=== PATIENT | female | born 1995 | race Caucasian/White ===

== ENCOUNTER → 2016-04-28 | Outpatient (CLI) | payer OTHER ==
--- NOTE | 2016-04-28 14:50 | US ---
EXAMINATION TYPE: US venous doppler duplex LE DATE OF EXAM: 04/28/2016 2:00 PM COMPARISON: NONE CLINICAL HISTORY: Non healing wounds bilateral feet, left big toe amputated, diabetic LOWER EXTREMITY VENOUS INSUFFICIENCY SIDE PERFORMED: Bilateral 1) Color flow is present and patency is documented in the following vessels. No DVT or SVT is noted . ? EIV ? Common Femoral Vein ? Deep Femoral Vein ? Femoral Vein ? Popliteal Vein ? Proximal Calf Veins ? Greater Saph Vein ? Upper Small Saph Vein 2) There is venous reflux noted at the following venous levels: Left proximal femoral vein only Right veins were wnl .
--- NOTE | 2016-05-06 14:39 | P.ARTDOP ---
Arterial Doppler LOWER EXTREMITY ARTERIAL DOPPLER: DATE OF SERVICE: 04/28/2016 Reason for study: Left great toe ulcer. Doppler waveforms: Multiphasic bilaterally throughout. Pulse volume recording: Normal configuration. Pressure gradients: None. Ankle-brachial indices: Greater than 1 bilaterally. Toe pressures: 144 on the right, 112 on the left Impression: Normal study.
== END | disposition home or self-care (01) ==
LOC: RADUSWWP 13:20
PROVIDERS: ATTEND Podiatrist
DX: I87.2 Venous insufficiency (chronic) (peripheral) (principal); E13.621 Other specified diabetes mellitus with foot ulcer
CPT/HCPCS: 93923; 93970

== ENCOUNTER → 2016-05-15 | Outpatient (CLI) | payer OTHER ==
--- NOTE | 2016-05-15 12:04 | XR ---
EXAMINATION TYPE: XR foot limited bilateral DATE OF EXAM: 05/15/2016 11:31 AM COMPARISON: 03/16/2016 HISTORY: Swelling and ulcers Findings: Left foot: There is previous surgery involving the first and fifth digit. Deformity of the head of th e second metatarsal suggests Freiberg's infarction. Diffuse soft tissue edema is noted. There is reduced mineralization involving the head of the first m etatarsal. Right foot: Hypertrophic change and narrowing the first MTP joint. No erosive change. Suggestion of s oft tissue edema and possible ulceration adjacent to the distal margin of the first digit. Correlate clinically. Note bony destruction. IMPRESSION: 1. Extensive soft tissue edema of the left foot with localized loss of mineralization involving the d istal margin first metatarsal suspicious for osteomyelitis. 2. Post arthritic change first MTP joint right foot with no diagnostic evidence of osteomyelitis. 3. Postsurgical changes involving the left foot. 1. 4. Freiberg's infarction second metatarsal left foot.
== END | disposition home or self-care (01) ==
LOC: RADXRMAIN 11:16
PROVIDERS: ATTEND Podiatrist
DX: R60.0 Localized edema (principal); M86.8X7 Other osteomyelitis, ankle and foot; Z98.890 Other specified postprocedural states

== ENCOUNTER 2016-05-29 06:21 | Day surgery (SDC) | payer OTHER ==
[2016-05-28 09:25] VITALS: BMI 42.5
[~2016-05-29 06:21] MED LIST: FAMOTIDINE 20 MG/2 ML VIAL IV PRN; HYDROmorphone 1 MG/ML 1 ML SYRINGE IVP PRN; LACTATED RINGERS 1,000 ML IV SCH; MIDAZOLAM 2 MG/2 ML VIAL IV PRN; ONDANSETRON 4 MG/2 ML VIAL IVP PRN; ceFAZolin 2 GM in SODIUM CHLORIDE 0.9% 100 ML IVPB ONE
[2016-05-29] MEDS ORDERED: LIDOCAINE 1% 20 ML VIAL (10MG/ML) FOR IV START SQ ONE (06:38)
[2016-05-29 06:56] VITALS: TEMP 99
[2016-05-29 07:25] LABS: Glucose,Whole Blood 161 mg/dL (75-99)
[2016-05-29] MEDS ORDERED: fentaNYL (PF) 50 MCG/ML 2 ML AMP ONE (07:34)
[2016-05-29] MEDS ORDERED: PROPOFOL 10 MG/ML 20 ML VIAL IV ONE (07:34)
[2016-05-29] MEDS ORDERED: MIDAZOLAM 2 MG/2 ML VIAL ONE (07:34)
[2016-05-29] MEDS ORDERED: LIDOCAINE 2% INJ 20 MG/ML SQ ONE ×2 (07:51)
[2016-05-29 08:58] VITALS: RESP 18
--- NOTE | 2016-05-29 09:21 | P.OP ---
Date of Procedure: 05/29/16 Preoperative Diagnosis: Diabetic ulceration Edwards grade 3 with osteomyelitis first metatarsal left foot Postoperative Diagnosis: Same Procedure(s) Performed: Wide excision diabetic ulcer with revisional amputation first metatarsal left foot Anesthesia: local Surgeon: Kris Bradford Estimated Blood Loss (ml): 10 Pathology: other (Osseous specimen) Condition: stable Disposition: same day Indications for Procedure: Osteomyelitis left foot Operative Findings: Consistent with clinical findings Description of Procedure: Patient presented approximately 2 hours prior to foot surgery. She was nothing by mouth from previous midnight. All labs H&P x-rays consent were reviewed and no counter indication to surgery seen. Brought to the OR and placed on the OR table in supine position. Copious amounts of labral were placed about the left ankle and a left ankle pneumatic tourniquet applied. Left foot was then prepped and draped in the usual aseptic manner. First ray was anesthetized with 10 mL of 2% Xylocaine plain. The left foot was then exsanguinated via elevation and placement of an Scotty wrap for 3 minutes after which time the pneumatic tourniquet was inflated to 250 mmHg. Attention was then directed to the plantar aspect of the left foot where the ulcer was excised via wide excision. All pathologic tissue was removed that was necrotic or suspicious for any pathologic activity. The wound was then extended from the ulcer distally carried dorsally onto the dorsal aspect of the shaft of the first metatarsal this incision was approximated 8 cm in length. The incision was then carried down the superficial deep fascia with care taken to retract all vital structures and clamp and cauterize all superficial bleeders. The first metatarsal was then exposed on the dorsal medial lateral surface distal one third. Using a sagittal saw an osteotomy was made in the first met neck from dorsal proximal medial to plantar distal lateral across first metatarsal. The distal first metatarsal head was then removed and retained for pathological evaluation. The area was then copiously lavaged with sterile saline solution. Visual inspection of the wound showed no necrotic or pathologic tissue exposed. The wound was then closed in layers using 3-0 Vicryl simper interrupted sutures for the deep fascia planes. Superficial fascial planes were reapproximated with 4-0 Vicryl simple interrupted sutures. Skin edges were reapproximated with 4-0 nylon horizontal mattress as well as simple sutures. Additionally on the plantar aspect of the foot 3-0 nylon was used with vertical mattress sutures to reapproximate the dermal edges. The wound was then dressed in a mildly compressive manner using Adaptic 4 x 4's 3 inch Flavio and Kerlix the pneumatic tourniquet was then deflated. Adequate vascular return was noted to all areas of left foot. Patient was brought to the recovery room from the operating room having tolerated procedure and anesthesia well. Patient was monitored in recovery until stable and discharged with postop instructions postop shoe for nonweightbearing postoperative prescription for antibiotics as well as pain control patient is to return to clinic for follow-up as scheduled.
[2016-05-29] MEDS ORDERED: HYDROcodone/APAP 5-325MG 1 EACH TAB PO ONE (09:45)
--- NOTE | 2016-05-29 09:50 | P.PN ---
Progress Note - Text Preoperative note Patient was seen preoperatively in the preop staging area. After full review of patient's chart H&P x-rays consent and no counter indication to the proposed surgery found. We reviewed the surgery with patient as well as complications prognosis risk and expectations of surgery. We answered all patient's questions prior to the surgery to best of our ability. Patient desired to continue to proceed with surgical procedure. We then identified the by marking the foot with a inevitable marker. Patient was then brought to the OR where the surgical procedure was performed.
--- NOTE | 2016-05-29 09:54 | P.PN ---
Progress Note - Text Postop note: Patient was seen in the recovery room resting comfortably. The dry sterile dressing was intact. There is no excessive hematogenous fluid or bleeding into the dressing. The surgical dressing on the left foot appeared dry without incident. Patient was awake and stable. We discussed with patient postop course. Patient was instructed verbally as well as with written orders to remain nonweightbearing on the left foot. A she was told weightbearing on the left foot may cause the sutures to fail in the wound open. Patient was also: She was given antibiotics to be taken orally postop. Patient was told the purpose of the antibiotics is to treat and prevent any infection. Patient was told to keep the surgical dressing dry and intact to help prevent any contamination of the wound. He should is to use the walker for nonweightbearing. Due to her drop of the patient is to keep the left foot leg protected with a cam walker which was dispensed prior to the surgery. Patient was given Tylenol 3's for postop pain management. She is to use these medications as directed. Patient can return to normal diet as tolerated. She is to repeat present to clinic as instructed.
[2016-05-29 09:58] VITALS: PULSE 83
[2016-05-29 10:26] VITALS: BP 106/74
--- NOTE | 2016-06-10 07:44 | CDI ---
Pt Name: Fabienne Clarke CONFIDENTIAL MR#: [id number] Adm Date: 05/29/2016 6:21:00 AM Printed:06/10/2016 Physician Documentation Request Page 1 of 1 ICD-10-CM Ready Physicians Documentation Request Patient: Fabienne Clarke EPI: [id number] Account: [id number] Payer: [facility] Facility: [facility] Location: - Admit Date: 05/29/2016 6:21:00 AM Query Send By: Neena Gar Phone #: Ext. Communication Date: 06/10/2016 7:40:00 AM Clarification Outpatient By submitting this query, we are merely seeking further clarification of documentation to accurately reflect all conditions that you are monitoring, evaluating, treating or that extend the hospitalization or utilize additional resources of care. Please utilize your independent clinical judgment when addressing the question(s) below. Dear Doctor Kris Bradford, The patients Clinical Indicators include: See below Documentation Clarification OP What is the size of the excision of the diabetic foot ulcer? PLEASE DOCUMENT ANY ADDITIONAL DIAGNOSES AND/OR SPECIFICITY IN THE PROGRESS NOTES AND/OR DISCHARGE SUMMARY. Agreed & documented Unable to determine/unknown Disagree with the above request Need to discuss MTDD
--- NOTE | 2016-06-15 18:49 | CDI ---
Pt Name: Fabienne Clarke CONFIDENTIAL MR#: [id number] Adm Date: 05/29/2016 6:21:00 AM Printed:06/15/2016 Physician Documentation Request Page 1 of 1 ICD-10-CM Ready Physicians Documentation Request The size of the ulcer was 1.5 cm x 1.5 cm x 6 mm plantar aspect left foot Patient: Fabienne Clarke EPI: [id number] Account: [id number] Payer: [facility] Facility: [facility] Location: - Admit Date: 05/29/2016 6:21:00 AM Query Send By: Neena Gar Phone #: Ext. Communication Date: 06/15/2016 6:47:00 PM Clarification Outpatient By submitting this query, we are merely seeking further clarification of documentation to accurately reflect all conditions that you are monitoring, evaluating, treating or that extend the hospitalization or utilize additional resources of care. Please utilize your independent clinical judgment when addressing the question(s) below. Dear Doctor Kris Bradford, The patients Clinical Indicators include: see below Documentation Clarification OP What is the size of the excision of the diabetic foot ulcer? Please document as an addendum. PLEASE DOCUMENT ANY ADDITIONAL DIAGNOSES AND/OR SPECIFICITY IN THE PROGRESS NOTES AND/OR DISCHARGE SUMMARY. Agreed & documented Unable to determine/unknown Disagree with the above request Need to discuss MTDD
== END 2016-05-29 10:39 | disposition home or self-care (01) ==
LOC: OR 06:21
PROVIDERS: ATTEND Podiatrist
DX: E11.621 Type 2 diabetes mellitus with foot ulcer (principal); L97.529 Non-pressure chronic ulcer of other part of left foot with unspecified severity; M86.9 Osteomyelitis, unspecified; M79.89 Other specified soft tissue disorders; I73.9 Peripheral vascular disease, unspecified; F41.9 Anxiety disorder, unspecified; K21.9 Gastro-esophageal reflux disease without esophagitis; Z79.1 Long term (current) use of non-steroidal anti-inflammatories (NSAID); Z79.4 Long term (current) use of insulin; Z79.891 Long term (current) use of opiate analgesic; Z79.899 Other long term (current) drug therapy
CPT/HCPCS: 28810; 11422; 81025; 88305; 88311; 87070; 87205; 87075; J2001; J2250; J0690; J2405; J3010; J1170; J2704; 99152; 99153

== ENCOUNTER 2016-10-04 15:19 | Observation (INO) | payer OTHER ==
--- NOTE | 2016-10-04 16:35 | ED ---
General Adult HPI - General Chief complaint: Skin/Abscess/Foreign Body Stated complaint: diabetic ulcer on foot Time Seen by Provider: 10/04/16 16:09 Source: patient, family, RN notes reviewed Mode of arrival: ambulatory Limitations: no limitations - History of Present Illness Initial comments: Chief complaint and history of present illness a 21-year-old female here with her significant other. The patient has history of insulin-dependent diabetes mellitus and has had her left great toe amputated because of infection. She reports she has an infection to her right great toe. She had been going to the wound clinic weekly but missed the last 5 weeks. It is now foul-smelling and infected. - Related Data Home Medications Medication Instructions Recorded Confirmed Albuterol Inhaler [Ventolin Hfa 2 puff INHALATION RT-QID PRN 03/16/16 10/04/16 Inhaler] Insulin Glulisine [Apidra] See Protocol SQ AC-TID 07/10/16 10/04/16 Previous Rx's Medication Instructions Recorded Insulin Glargine [Lantus] 26 unit SQ HS #1 vial 03/23/16 Pregabalin [Lyrica] 75 mg PO BID #60 cap 04/20/16 Allergies Allergy/AdvReac Type Severity Reaction Status Date / Time No Known Allergies Allergy Verified 10/04/16 15:29 Review of Systems ROS Statement: Those systems with pertinent positive or pertinent negative responses have been documented in the HPI. Review of systems no other complaints no headache chest pain shortness breath GI / problems. All systems reviewed. Past medical problems significant for hypertension and insulin-dependent diabetes mellitus since she was age 14. Patient's surgeries include left big toe amputated because of infection and osteomyelitis. Family history significant for a grandmother had colon cancer. Patient was told to stop her family doctor about hitting colonoscopies eventually. She denies any ALLERGIES she does smoke strongly encouraged to stop. Drinks alcohol socially. ROS Other: All systems not noted in ROS Statement are negative. Past Medical History Past Medical History: Diabetes Mellitus, GERD/Reflux, Hypertension Additional Past Medical History / Comment(s): Polycystic ovarian disease, recurrent pressure ulcers bilateral feet, osteomyelitis with L great toe amputation, past L thigh abscess with cellulitis, States hx of htn, but none now. WEARS BOOT ON LEFT FOOT, AND HAS DRESSING History of Any Multi-Drug Resistant Organisms: None Reported Past Surgical History: Orthopedic Surgery Additional Past Surgical History / Comment(s): WOUND CENTER PT. lt great toe amputation, lt achilles tendon repair, removal of part of left fifth metatarsal for osteomyelitis, I&D LT FOOT(ULCER). PICC LINE Past Anesthesia/Blood Transfusion Reactions: No Reported Reaction Past Psychological History: Anxiety, Depression Smoking Status: Current every day smoker Past Alcohol Use History: None Reported Past Drug Use History: None Reported - Past Family History Mother Family Medical History: Liver Disease Additional Family Medical History / Comment(s): Hx Chrons and colitis. age 35 with liver problems due to ETOH use. Father Family Medical History: Hyperlipidemia, Hypertension Additional Family Medical History / Comment(s): grand father had and mi, grand mother had copd, chf,dm,bp General Exam - General Exam Comments Initial Comments: General: The patient is awake and alert, here with an infection to her right great toe. Vital signs temp 97.7 pulse 11 respiratory rate 20 pulse ox 97% room air eye pressure 124/80. Eye: Pupils are equal, round and reactive to light, extra-ocular movements are intact ; there is normal conjunctiva bilaterally. No signs of icterus. Ears, nose, mouth and throat: There are moist mucous membranes and no oral lesions. Neck: The neck is supple, there is no tenderness . Cardiovascular: There is a regular rate and rhythm. No murmur, rub or gallop is appreciated. Respiratory: Lungs are clear to auscultation, respirations are non-labored, breath sounds are equal. No wheezes, stridor, rales, or rhonchi. Gastrointestinal: Soft, non-distended, non-tender abdomen without masses or organomegaly noted. There is no rebound or guarding present. No CVA tenderness. Bowel sounds are unremarkable. Back: No back pain no complaint of rash Musculoskeletal: Amputated left great toe. Right great toes foul-smelling evidence of drainage from the middle of a callus on the plantar surface of her right great toe over the MTP joint. Neurological: No complaint of a neuro deficit at this time. Skin: Skin is warm and dry and no rashes or lesions are noted. Limitations: no limitations Course Vital Signs 10/04/16 15:26 Temperature 97.7 F Pulse Rate 101 H Respiratory 20 Rate Blood Pressure 124/80 O2 Sat by Pulse 97 Oximetry Medical Decision Making - Medical Decision Making Patient will have lab work done and x-ray to rule out osteomyelitis. I discussed the case with Dr. cool, patient be admitted to his service with consultation from infectious disease and fixed income analyst Dr. Bradford. She has seen Dr. Andujar in the past The patient states she has not had MRSA in the past. Currently due to computer complications not able to obtain the most recent cultures and sensitivities. The patient will be started on Unasyn. Disposition Clinical Impression: Infected blister of great toe of right foot Disposition: ADMITTED IP TO THIS HOSP Condition: Serious Referrals: Benito Eckert MD [Primary Care Provider] - 1-2 days
[2016-10-04] MEDS ORDERED: ACETAMINOPHEN TAB 325 MG TAB PO PRN (16:43)
[2016-10-04] MEDS ORDERED: NALOXONE 0.4 MG/ML 1 ML VIAL IV PRN (16:43)
[2016-10-04] MEDS ORDERED: ALBUTEROL NEBULIZED 2.5 MG/3 ML INHALATION PRN (16:48)
[2016-10-04] MEDS ORDERED: AMPICILLIN-SULBACTAM 1.5 GM in SODIUM CHLORIDE 0.9% 50 ML IVPB STA (16:54)
--- NOTE | 2016-10-04 17:06 | XR ---
Right foot HISTORY: Right toe infection 3 views of the right foot correlated to prior 08/21/2016 No significant interval change IMPRESSION: Stable exam. Soft tissue swelling noted to the first digit.
[2016-10-04] MEDS: SODIUM CHLORIDE 0.9% 1,000 ML IV SCH (17:16)
[2016-10-04 17:32] LABS: Basophils % (A) 0 %; CH 28.8; CHCM 34.6; Eosinophils # (A) 0.2 k/uL (0-0.7); Eosinophils % (A) 1 %; HDW 3.06; HGB 12.8 gm/dL (11.4-16.0); Luc # (Auto) 0.14; Luc % (Auto) 1; Lymphocytes # (A) 2.9 k/uL (1.0-4.8); Lymphocytes % (A) 24 %; MCH 28.3 pg (25.0-35.0); MCHC 33.8 g/dL (31.0-37.0); MCV 83.7 fL (80.0-100.0); Mean Platelet Volume 6.7; Monocytes # (A) 0.4 k/uL (0-1.0); Monocytes % (A) 3 %; Neutrophils # (A) 8.5 k/uL (1.3-7.7); Neutrophils % (A) 70 %; RBC 4.53 m/uL (3.80-5.40); RDW 14.2 % (11.5-15.5); WBC 12.1 k/uL (3.8-10.6); WBC (Perox) 11.59
[2016-10-04 17:46] LABS: ALT 24 U/L (9-52); AST 15 U/L (14-36); Alkaline Phosphatase 61 U/L (38-126); Anion Gap 11 mmol/L; Blood Urea Nitrogen 10 mg/dL (7-17); Calcium 9.6 mg/dL (8.4-10.2); Carbon Dioxide 22 mmol/L (22-30); Chloride 105 mmol/L (98-107); Glucose 154 mg/dL (74-99); Non-African American GFR(MDRD) >60 (>60 ml/min/1.73 sqM); Potassium 4.2 mmol/L (3.5-5.1); Sodium 138 mmol/L (137-145); Total Bilirubin 0.5 mg/dL (0.2-1.3); Total Protein 7.5 g/dL (6.3-8.2)
[2016-10-04 17:49] LABS: Glucose,Whole Blood 135 mg/dL (75-99)
[2016-10-04] MEDS ORDERED: HYDROcodone/APAP 5-325MG 1 EACH TAB PO PRN (18:04)
[2016-10-04 18:25] VITALS: BMI 43.9
[2016-10-04] MEDS: INSULIN LISPRO (humaLOG) 300 UNIT/3 ML VIAL SQ SCH ×2 (18:29→21:05)
[2016-10-04 20:37] LABS: Glucose,Whole Blood 236 mg/dL (75-99)
[2016-10-04] MEDS: INSULIN GLARGINE 100 UNIT/ML 10 ML VIAL SQ SCH (21:05)
[2016-10-04] MEDS: HYDROcodone/APAP 5-325MG 1 EACH TAB PO PRN (21:06)
[2016-10-04] MEDS: PREGABALIN 75 MG CAP PO SCH (21:06)
[2016-10-04] MEDS: AMPICILLIN-SULBACTAM 1.5 GM in SODIUM CHLORIDE 0.9% 50 ML IVPB SCH (21:23)
[2016-10-05] MEDS: HYDROcodone/APAP 5-325MG 1 EACH TAB PO PRN ×3 (01:04→08:04)
[2016-10-05] MEDS: SODIUM CHLORIDE 0.9% 1,000 ML IV SCH ×3 (07:10→22:24)
[2016-10-05 07:24] LABS: Glucose,Whole Blood 138 mg/dL (75-99)
[2016-10-05] MEDS: INSULIN LISPRO (humaLOG) 300 UNIT/3 ML VIAL SQ SCH ×4 (08:02→20:19)
[2016-10-05] MEDS: PREGABALIN 75 MG CAP PO SCH ×2 (08:04→20:24)
[2016-10-05] MEDS: AMPICILLIN-SULBACTAM 1.5 GM in SODIUM CHLORIDE 0.9% 50 ML IVPB SCH ×3 (08:05→22:24)
[2016-10-05 11:21] LABS: Glucose,Whole Blood 183 mg/dL (75-99)
[2016-10-05 11:35] LABS: Hemoglobin A1C 6.8 % (4.2-6.1)
[2016-10-05] MEDS ORDERED: HYDROcodone/APAP 7.5-325MG 1 EACH TAB PO STA (11:37)
[2016-10-05] MEDS: HYDROcodone/APAP 7.5-325MG 1 EACH TAB PO PRN ×3 (12:54→23:06)
[2016-10-05] MEDS: diphenhydrAMINE 25 MG CAP PO PRN ×2 (14:51→23:08)
[2016-10-05] MEDS ORDERED: LORazepam 2 MG/ML SYRINGE IV PRN (16:15)
[2016-10-05 16:59] LABS: Glucose,Whole Blood 140 mg/dL (75-99)
--- NOTE | 2016-10-05 20:01 | P.HPIM ---
History of Present Illness H&P Date: 10/05/16 Ms. Clarke is a diabetic who comes in to the hospital with complains of right total wound that has progressively gotten worse. Patient has a diabetic foot wound that is being seen and cared by Dr. 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 Denies having any fevers headaches chills nausea vomiting diarrhea urinary urgency or frequency Patient has not been using a specialized boots over the recent times States to have some increased tenderness in her right total As been compliant with her diabetic medications Review of Systems All systems: negative (Noted in HPI) Past Medical History Past Medical History: Diabetes Mellitus, GERD/Reflux, Hypertension Additional Past Medical History / Comment(s): Polycystic ovarian disease, recurrent pressure ulcers bilateral feet, osteomyelitis with L great toe amputation, past L thigh abscess with cellulitis, States hx of htn, but none now. WEARS BOOT ON LEFT FOOT, AND HAS DRESSING History of Any Multi-Drug Resistant Organisms: None Reported Past Surgical History: Orthopedic Surgery Additional Past Surgical History / Comment(s): WOUND CENTER PT. lt great toe amputation, lt achilles tendon repair, removal of part of left fifth metatarsal for osteomyelitis, I&D LT FOOT(ULCER). 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 Smoking Status: Current every day smoker Past Alcohol Use History: None Reported Past Drug Use History: None Reported - Past Family History Mother Family Medical History: Liver Disease Additional Family Medical History / Comment(s): Hx Chrons and colitis. age 35 with liver problems due to ETOH use. Father Family Medical History: Hyperlipidemia, Hypertension Additional Family Medical History / Comment(s): grand father had and mi, grand mother had copd, chf,dm,bp Medications and Allergies Home Medications Medication Instructions Recorded Confirmed Type Albuterol Inhaler [Ventolin Hfa 2 puff INHALATION RT-QID PRN 03/16/16 10/04/16 History Inhaler] Insulin Glulisine [Apidra] See Protocol SQ AC-TID 07/10/16 10/04/16 History Allergies Allergy/AdvReac Type Severity Reaction Status Date / Time No Known Allergies Allergy Verified 10/04/16 15:29 Physical Exam Vitals: Vital Signs Temp Pulse Pulse Resp BP Pulse Ox 10/05/16 19:23 98.6 F 80 16 115/71 99 10/05/16 14:20 97.9 F 94 17 137/94 98 10/05/16 07:00 98.7 F 82 18 119/77 98 10/05/16 02:16 98.1 F 75 16 128/86 99 10/04/16 20:00 97.7 F 86 18 141/84 99 Intake and Output 10/05/16 10/05/16 10/05/16 06:59 14:59 22:59 Intake Total 980 1700 480 Balance 980 1700 480 Intake: Intake, IV Titration 980 740 Amount Ampicillin-Sulbactam 1.5 100 gm In Sodium Chloride 0.9 % 50 ml @ 100 mls/hr IVPB ONCE STA Rx#:[id number] Ampicillin-Sulbactam 1.5 100 gm In Sodium Chloride 0.9 % 50 ml @ 100 mls/hr IVPB TID GAVIN Rx#:[id number] Sodium Chloride 0.9% 1, 880 640 000 ml @ 80 mls/hr IV . [id number] GAVIN Rx#:[id number] Oral 960 480 Physical exam Gen. appearance oriented 3 in no distress Neck is supple no JVD Lungs good air entry clear to auscultation no rhonchi or wheezing Heart S1-S2 heard regular rate and rhythm no murmurs appreciated Abdomen is soft nontender no organomegaly bowel sounds are intact Neurologically cranial nerves II-12 grossly intact no focal motor or sensory deficits noted Skin right toe wound on the dorsal surface with no losing not significantly tender to palpation Results CBC & Chem 7: 10/04/16 17:15 10/04/16 17:15 Labs: Abnormal Lab Results - Last 24 Hours (Table) 10/04/16 10/04/16 10/05/16 Range/Units 17:15 20:35 07:21 POC Glucose (mg/dL) 236 H 138 H (75-99) mg/dL Hemoglobin A1c 6.8 H (4.2-6.1) % 10/05/16 10/05/16 Range/Units 11:18 16:39 POC Glucose (mg/dL) 183 H 140 H (75-99) mg/dL Hemoglobin A1c (4.2-6.1) % Microbiology - Last 24 Hours (Table) 10/04/16 16:34 Wound Culture - Preliminary Foot - Right Thrombosis Risk Factor Assmnt - Choose All That Apply Each Factor Represents 1 point: Obesity (BMI >25) Other Risk Factors: No Thrombosis Risk Factor Assessment Total Risk Factor Score: 1 Thrombosis Risk Factor Assessment Level: Low Risk Assessment and Plan Plan: #1 diabetic foot infection #2 diabetes mellitus #3 peripheral neuropathy #4 obesity Plan Rule out osteoarthritis Wound care Consult podiatry and infectious diseases Once osteomyelitis is ruled in or ruled out disposition will be thereafter dealt with glucose control Continue home regimen of Levemir and NovoLog sliding scale
[2016-10-05 20:14] LABS: Glucose,Whole Blood 167 mg/dL (75-99)
[2016-10-05] MEDS: INSULIN GLARGINE 100 UNIT/ML 10 ML VIAL SQ SCH (20:23)
--- NOTE | 2016-10-05 21:28 | P.CONS ---
History of Present Illness - Reason for Consult Consult date: 10/05/16 - Chief Complaint Ulcer right foot - History of Present Illness This is a 20-year-old female who has a past medical history significant for left great toe amputation 6-7 years ago due to osteomyelitis and she also relates she has had part of the fifth metatarsal removed for osteomyelitis. She has history of diabetes mellitus type 2, uncontrolled with hemoglobin A1c of 8.7 in December 2015. She has been a tobacco smoker of half a pack per day for 5 years and states she quit in December. She was hospitalized January 01 through January 09 at which time she underwent an MRI of the left foot that did show osteomyelitis in the first left metatarsal. Biopsy was done that showed acute on chronic inflammation changes but negative for osteomyelitis. Patient was discharged home on Levaquin and she followed up on one occasion in the wound healing center with Dr. Sahu . She again had difficulties and that was following the wound healing center with Dr. Bradford. However she is working at a local restaurant and was unable to have time to come to the wound center. She then noticed worsening of the ulceration to the plantar surface the right great toe. Resented to Hospital has been admitted for diabetic foot ulcer with concerns to osteomyelitis. MRI has been ordered and wound care is in process. There is concerns to osteomyelitis in the infectious diseases consultation was requested. Review of Systems Constitutional: Reports hemoglobin A1c has been improving over time, Reports chills, Reports poor appetite, Reports weight loss, Denies fever Eyes: denies blurred vision, denies pain Ears, nose, mouth and throat: Denies headache, Denies sore throat Cardiovascular: Denies chest pain, Denies shortness of breath Respiratory: Denies cough Gastrointestinal: Denies abdominal pain, Denies diarrhea, Denies nausea, Denies vomiting Genitourinary: Denies dysuria, Denies hematuria Musculoskeletal: Denies myalgias Integumentary: Denies pruritus, Denies rash Neurological: Denies numbness, Denies weakness Psychiatric: Denies anxiety, Denies depression Endocrine: Denies fatigue, Denies weight change Past Medical History Past Medical History: Diabetes Mellitus, GERD/Reflux, Hypertension Additional Past Medical History / Comment(s): Polycystic ovarian disease, recurrent pressure ulcers bilateral feet, osteomyelitis with L great toe amputation, past L thigh abscess with cellulitis, States hx of htn, but none now. WEARS BOOT ON LEFT FOOT, AND HAS DRESSING History of Any Multi-Drug Resistant Organisms: None Reported Past Surgical History: Orthopedic Surgery Additional Past Surgical History / Comment(s): WOUND CENTER PT. lt great toe amputation, lt achilles tendon repair, removal of part of left fifth metatarsal for osteomyelitis, I&D LT FOOT(ULCER). 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 Smoking Status: Current every day smoker Past Alcohol Use History: None Reported Past Drug Use History: None Reported - Past Family History Mother Family Medical History: Liver Disease Additional Family Medical History / Comment(s): Hx Chrons and colitis. age 35 with liver problems due to ETOH use. Father Family Medical History: Hyperlipidemia, Hypertension Additional Family Medical History / Comment(s): grand father had and mi, grand mother had copd, chf,dm,bp Medications and Allergies Home Medications and Allergies Comment(s): Current Medications Acetaminophen (Tylenol Tab) 650 mg PO Q6HR PRN PRN Reason: Mild Pain or Fever > 100.5 Last Admin: 10/04/16 17:09 Dose: 650 mg Hydrocodone Bitart/Acetaminophen ([place] 7.5-325) 1 each PO Q6H PRN PRN Reason: Moderate Pain Last Admin: 10/05/16 17:59 Dose: 1 each Albuterol Sulfate (Ventolin Nebulized) 2.5 mg INHALATION RT-QID PRN PRN Reason: Shortness Of Breath Diphenhydramine HCl (Benadryl) 25 mg PO Q6H PRN PRN Reason: Itching Last Admin: 10/05/16 14:51 Dose: 25 mg Sodium Chloride (Saline 0.9%) 1,000 mls @ 80 mls/hr IV .[id number] GAVIN Last Admin: 10/05/16 18:02 Dose: Not Given Ampicillin Sodium/Sulbactam (Sodium 1.5 gm/ Sodium Chloride) 50 mls @ 100 mls/ hr IVPB TID GAVIN Last Admin: 10/05/16 17:27 Dose: 100 mls/hr Insulin Glargine (Lantus) 26 unit SQ HS GAVIN Last Admin: 10/05/16 20:23 Dose: 26 unit Insulin Human Lispro (Humalog) 0 unit SQ ACHS GAVIN PRN Reason: Protocol Last Admin: 10/05/16 20:19 Dose: 2 unit Lorazepam (Ativan) 0.5 mg IV ONCE PRN PRN Reason: MRI Stop: 10/12/16 16:16 Naloxone HCl (Narcan) 0.2 mg IV Q2M PRN PRN Reason: Opioid Reversal Pregabalin (Lyrica) 75 mg PO BID [facility] Last Admin: 10/05/16 20:24 Dose: 75 mg Home Medications Medication Instructions Recorded Confirmed Type Albuterol Inhaler [Ventolin Hfa 2 puff INHALATION RT-QID PRN 03/16/16 10/04/16 History Inhaler] Insulin Glulisine [Apidra] See Protocol SQ AC-TID 07/10/16 10/04/16 History Allergies Allergy/AdvReac Type Severity Reaction Status Date / Time No Known Allergies Allergy Verified 10/04/16 15:29 Physical Exam Vitals: Vital Signs Temp Pulse Pulse Resp BP Pulse Ox 10/05/16 19:23 98.6 F 80 16 115/71 99 10/05/16 14:20 97.9 F 94 17 137/94 98 10/05/16 07:00 98.7 F 82 18 119/77 98 10/05/16 02:16 98.1 F 75 16 128/86 99 Intake and Output 10/05/16 10/05/16 10/05/16 06:59 14:59 22:59 Intake Total 980 1700 480 Balance 980 1700 480 Intake: Intake, IV Titration 980 740 Amount Ampicillin-Sulbactam 1.5 100 gm In Sodium Chloride 0.9 % 50 ml @ 100 mls/hr IVPB ONCE STA Rx#:[id number] Ampicillin-Sulbactam 1.5 100 gm In Sodium Chloride 0.9 % 50 ml @ 100 mls/hr IVPB TID GAVIN Rx#:[id number] Sodium Chloride 0.9% 1, 880 640 000 ml @ 80 mls/hr IV . [id number] GAVIN Rx#:[id number] Oral 960 480 Gen: This is a morbid obesity 20-year-old female. She is sitting up in bed and appears to be in no acute distress. HEENT: Head is atraumatic, normocephalic. Pupils equal, round. Sclerae is anicteric. NECK: Supple. No JVD. No lymphadenopathy. No thyromegaly. LUNGS: Clear to auscultation. No wheezes or rhonchi. No intercostal retractions. HEART: Regular rate and rhythm. No murmur. ABDOMEN: Soft. Bowel sounds are present. No masses. No tenderness. EXTREMITIES: No new ulcerations are seen on the left foot. Right foot reveals evidence of the swelling as well as the ulceration measures at 0.5 x 1 x 0.3 cm. There is some erythema and some drainage. With her neuropathy is not very tender. NEUROLOGICAL: Patient is awake, alert and oriented x3. Cranial nerves 2 through 12 are grossly intact. Results CBC & Chem 7: 10/04/16 17:15 10/04/16 17:15 Labs: Abnormal Lab Results - Last 24 Hours (Table) 10/04/16 10/05/16 10/05/16 Range/Units 17:15 07:21 11:18 POC Glucose (mg/dL) 138 H 183 H (75-99) mg/dL Hemoglobin A1c 6.8 H (4.2-6.1) % 10/05/16 10/05/16 Range/Units 16:39 20:13 POC Glucose (mg/dL) 140 H 167 H (75-99) mg/dL Hemoglobin A1c (4.2-6.1) % Microbiology - Last 24 Hours (Table) 10/04/16 16:34 Wound Culture - Preliminary Foot - Right Laboratory Results WBC 12.1 k/uL (3.8-10.6) H 10/04/16 17:15 RBC 4.53 m/uL (3.80-5.40) 10/04/16 17:15 Hgb 12.8 gm/dL (11.4-16.0) 10/04/16 17:15 Hct 38.0 % (34.0-46.0) 10/04/16 17:15 MCV 83.7 fL (80.0-100.0) 10/04/16 17:15 MCH 28.3 pg (25.0-35.0) 10/04/16 17:15 MCHC 33.8 g/dL (31.0-37.0) 10/04/16 17:15 RDW 14.2 % (11.5-15.5) 10/04/16 17:15 Plt Count 268 k/uL (150-450) 10/04/16 17:15 Neutrophils % 70 % 10/04/16 17:15 Lymphocytes % 24 % 10/04/16 17:15 Monocytes % 3 % 10/04/16 17:15 Eosinophils % 1 % 10/04/16 17:15 Basophils % 0 % 10/04/16 17:15 Neutrophils # 8.5 k/uL (1.3-7.7) H 10/04/16 17:15 Lymphocytes # 2.9 k/uL (1.0-4.8) 10/04/16 17:15 Monocytes # 0.4 k/uL (0-1.0) 10/04/16 17:15 Eosinophils # 0.2 k/uL (0-0.7) 10/04/16 17:15 Basophils # 0.0 k/uL (0-0.2) 10/04/16 17:15 Sodium 138 mmol/L (137-145) 10/04/16 17:15 Potassium 4.2 mmol/L (3.5-5.1) 10/04/16 17:15 Chloride 105 mmol/L (98-107) 10/04/16 17:15 Carbon Dioxide 22 mmol/L (22-30) 10/04/16 17:15 Anion Gap 11 mmol/L 10/04/16 17:15 BUN 10 mg/dL (7-17) 10/04/16 17:15 Creatinine 0.39 mg/dL (0.52-1.04) L 10/04/16 17:15 Est GFR (MDRD) Af Amer >60 (>60 ml/min/1.73 sqM) 10/04/16 17:15 Est GFR (MDRD) Non-Af >60 (>60 ml/min/1.73 sqM) 10/04/16 17:15 Glucose 154 mg/dL (74-99) H 10/04/16 17:15 POC Glucose (mg/dL) 167 mg/dL (75-99) H 10/05/16 20:13 POC Glu Dining Chair Seat Cushion Trimmer Vianey Maradiaga 10/05/16 20:[address] Glu mg/dL 148 mg/dL 10/04/16 17:15 Hemoglobin A1c 6.8 % (4.2-6.1) H 10/04/16 17:15 Calcium 9.6 mg/dL (8.4-10.2) 10/04/16 17:15 Total Bilirubin 0.5 mg/dL (0.2-1.3) 10/04/16 17:15 AST 15 U/L (14-36) 10/04/16 17:15 ALT 24 U/L (9-52) 10/04/16 17:15 Alkaline Phosphatase 61 U/L (38-126) 10/04/16 17:15 Total Protein 7.5 g/dL (6.3-8.2) 10/04/16 17:15 Albumin 4.1 g/dL (3.5-5.0) 10/04/16 17:15 Urine HCG, Qual Not Detected (Not Detectd) 10/05/16 16:52 Microbiology 10/04/16 16:34 Foot - Right Wound Culture - Preliminary Assessment and Plan (1) Diabetic foot ulcer Narrative/Plan: 21-year-old woman presents to emergency center with increasing difficulties to her right foot at the plantar surface of the great toe. She has a known difficulty with ulceration at that site. Was unable to continue with visits to the wound center because of her work. No other significant worsening and worsening ulceration. She became concerned and presented to the emergency center because of her history of prior toe amputation. Has been working hard with her diabetes her A1c has improved over the last 2 years but not yet normal. She's also had great difficulty with weight loss. There is some workup is in process including MRI to evaluate for possibility of ongoing osteomyelitis of that toe so that there can be a plan for antibiotic therapy. With the pending MRI saline dressings are youths since silver dressings cannot be in place for an MRI. After the scan wound care can be altered. We will monitor. Approximately this will determine the course of overall therapy. We do well had offloading boot. We'll have her follow up with the wound center after discharge. Status: Acute (2) Diabetes mellitus type 2 with complications, uncontrolled Status: Acute
[2016-10-06] MEDS: HYDROcodone/APAP 7.5-325MG 1 EACH TAB PO PRN ×4 (05:22→23:36)
[2016-10-06 07:31] LABS: Glucose,Whole Blood 133 mg/dL (75-99)
[2016-10-06] MEDS: INSULIN LISPRO (humaLOG) 300 UNIT/3 ML VIAL SQ SCH ×4 (07:59→20:34)
[2016-10-06] MEDS: AMPICILLIN-SULBACTAM 1.5 GM in SODIUM CHLORIDE 0.9% 50 ML IVPB SCH ×3 (07:59→21:08)
[2016-10-06] MEDS: PREGABALIN 75 MG CAP PO SCH ×2 (08:32→20:34)
--- NOTE | 2016-10-06 08:39 | P.CON ---
Consult Note - . Consult date: 10/06/16 Assessment/Plan:: *Live* [facility] [address], [place] [address] Medical - Consult Note Patient Name: Fabinene Clarke Date of : 89 Patient Status: Inpatient Attending Provider: Elaine Aparicio Date: 10/05/16 21:21 Initialization Date: 10/05/16 21:21 History of Present Illness - Reason for Consult Consult date: 10/06/16 - Chief Complaint Ulcer right foot - History of Present Illness This is a 20-year-old female who has a past medical history significant for diabetes mellitus with prior history of infections bilateral feet with a resultant amputation partial on the left foot. Presented to the emergency room on Wednesday and was submitted for infection of the right foot with possible osteomyelitis. Patient is currently on Unasyn and is being followed by infectious disease. She is to have an MRI performed today. Apparently the right foot started to grade last week while she was at work and wearing her shoes. Patient states that it continued to worsen and drain as well as presented with an odor. There is concern brought her to the emergency room on Wednesday after which she was admitted. Patient states she has not been going to the wound care clinic follow-up care of the ulceration to her right foot secondary to her commitment for work. She is seen today at bedside with a dry sterile dressing applied to the right foot. Review of Systems Constitutional: Reports hemoglobin A1c has been improving over time, Reports chills, Reports poor appetite, Reports weight loss, Denies fever Eyes: denies blurred vision, denies pain Ears, nose, mouth and throat: Denies headache, Denies sore throat Cardiovascular: Denies chest pain, Denies shortness of breath Respiratory: Denies cough Gastrointestinal: Denies abdominal pain, Denies diarrhea, Denies nausea, Denies vomiting Genitourinary: Denies dysuria, Denies hematuria Musculoskeletal: Denies myalgias Integumentary: Denies pruritus, Denies rash Neurological: Denies numbness, Denies weakness Psychiatric: Denies anxiety, Denies depression Endocrine: Denies fatigue, Denies weight change Past Medical History Past Medical History: Diabetes Mellitus, GERD/Reflux, Hypertension Additional Past Medical History / Comment(s): Polycystic ovarian disease, recurrent pressure ulcers bilateral feet, osteomyelitis with L great toe amputation, past L thigh abscess with cellulitis, States hx of htn, but none now. WEARS BOOT ON LEFT FOOT, AND HAS DRESSING History of Any Multi-Drug Resistant Organisms: None Reported Past Surgical History: Orthopedic Surgery Additional Past Surgical History / Comment(s): WOUND CENTER PT. lt great toe amputation, lt achilles tendon repair, removal of part of left fifth metatarsal for osteomyelitis, I&D LT FOOT(ULCER). 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 Smoking Status: Current every day smoker Past Alcohol Use History: None Reported Past Drug Use History: None Reported - Past Family History Mother Family Medical History: Liver Disease Additional Family Medical History / Comment(s): Hx Chrons and colitis. age 35 with liver problems due to ETOH use. Father Family Medical History: Hyperlipidemia, Hypertension Additional Family Medical History / Comment(s): grand father had and mi, grand mother had copd, chf,dm,bp Medications and Allergies Home Medications and Allergies Comment(s): Current Medications Acetaminophen (Tylenol Tab) 650 mg PO Q6HR PRN PRN Reason: Mild Pain or Fever > 100.5 Last Admin: 10/04/16 17:09 Dose: 650 mg Hydrocodone Bitart/Acetaminophen ([place] 7.5-325) 1 each PO Q6H PRN PRN Reason: Moderate Pain Last Admin: 10/05/16 17:59 Dose: 1 each Albuterol Sulfate (Ventolin Nebulized) 2.5 mg INHALATION RT-QID PRN PRN Reason: Shortness Of Breath Diphenhydramine HCl (Benadryl) 25 mg PO Q6H PRN PRN Reason: Itching Last Admin: 10/05/16 14:51 Dose: 25 mg Sodium Chloride (Saline 0.9%) 1,000 mls @ 80 mls/hr IV .[id number] [facility] Last Admin: 10/05/16 18:02 Dose: Not Given Ampicillin Sodium/Sulbactam (Sodium 1.5 gm/ Sodium Chloride) 50 mls @ 100 mls/ hr IVPB TID [facility] Last Admin: 10/05/16 17:27 Dose: 100 mls/hr Insulin Glargine (Lantus) 26 unit SQ HS [facility] Last Admin: 10/05/16 20:23 Dose: 26 unit Insulin Human Lispro (Humalog) 0 unit SQ ACHS GAVIN PRN Reason: Protocol Last Admin: 10/05/16 20:19 Dose: 2 unit Lorazepam (Ativan) 0.5 mg IV ONCE PRN PRN Reason: MRI Stop: 10/12/16 16:16 Naloxone HCl (Narcan) 0.2 mg IV Q2M PRN PRN Reason: Opioid Reversal Pregabalin (Lyrica) 75 mg PO BID [facility] Last Admin: 10/05/16 20:24 Dose: 75 mg Home Medications Medication Instructions Recorded Confirmed Type Albuterol Inhaler [Ventolin Hfa 2 puff INHALATION RT-QID PRN 03/16/16 10/04/16 History Inhaler] Insulin Glulisine [Apidra] See Protocol SQ AC-TID 07/10/16 10/04/16 History Allergies Allergy/AdvReac Type Severity Reaction Status Date / Time No Known Allergies Allergy Verified 10/04/16 15:29 Physical Exam Vitals: Vital Signs Temp Pulse Pulse Resp BP Pulse Ox 10/05/16 19:23 98.6 F 80 16 115/71 99 10/05/16 14:20 97.9 F 94 17 137/94 98 10/05/16 07:00 98.7 F 82 18 119/77 98 10/05/16 02:16 98.1 F 75 16 128/86 99 Intake and Output 10/05/16 10/05/16 10/05/16 06:59 14:59 22:59 Intake Total 980 1700 480 Balance 980 1700 480 Intake: Intake, IV Titration 980 740 Amount Ampicillin-Sulbactam 1.5 100 gm In Sodium Chloride 0.9 % 50 ml @ 100 mls/hr IVPB ONCE STA Rx#:[id number] Ampicillin-Sulbactam 1.5 100 gm In Sodium Chloride 0.9 % 50 ml @ 100 mls/hr IVPB TID GAVIN Rx#:[id number] Sodium Chloride 0.9% 1, 880 640 000 ml @ 80 mls/hr IV . [id number] [facility] Rx#:[id number] Oral 960 480 Gen: This is a morbid obesity 20-year-old female. She is sitting up in bed and appears to be in no acute distress. HEENT: Head is atraumatic, normocephalic. Pupils equal, round. Sclerae is anicteric. NECK: Supple. No JVD. No lymphadenopathy. No thyromegaly. LUNGS: Clear to auscultation. No wheezes or rhonchi. No intercostal retractions. HEART: Regular rate and rhythm. No murmur. ABDOMEN: Soft. Bowel sounds are present. No masses. No tenderness. . NEUROLOGICAL: Patient is awake, alert and oriented x3. Cranial nerves 2 through 12 are grossly intact. Podiatric exam: Dermatologic exam: Patient ulcer on the right foot present on the plantar central as well as plantar medial aspect of the right hallux. This ulcer is through the dermis down into the deep fascia planes. After debridement the wound penetrated down to but does not appear to penetrate into the interphalangeal joint. The wound measured approximately 1.5 cm x 2 cm x 0.5 cm prior to debridement. Excisional debridement was performed of all the surrounding necrotic tissue cutting into the deep fascia planes and removal of all necrotic tissue that was present and visible. After debridement with a sterile 15 blade the wound measured approximately 2 cm x 2 cm x 1 cm. The wound was debrided down to good viable hemorrhagic tissue. She does have a hyperkeratotic lesion distal aspect of the left second toe. Neurologic exam: Patient has loss of epicritic and pallesthetic sensations up to including the mid foot and lower leg bilateral. Vibratory 2 point tactile sensation diminished bilateral. Loss of protective sensation in a similar distribution. Vascular exam: Pedal pulses are patent palpable bilateral skin temperature texture tumor normal and symmetrical bilateral Orthopedic exam: There is partial amputation of the first and fifth ray of the left foot. Patient has hammering of the digits to 3 and 4 bilateral. Patient has a gastrocnemius equinus deformity bilateral. Range of motion midtarsal joint subtalar joint and midtarsal phalangeal joints otherwise grossly normal symmetrical bilateral all inverters everters plantar flexed dorsiflexors grossly normal symmetrical Results as of 10/04/2016 CBC & Chem 7: 10/04/16 17:15 10/04/16 17:15 Labs: Abnormal Lab Results - Last 24 Hours (Table) 0610/05/16 10/05/16 Range/Units 17:15 07:21 11:18 POC Glucose (mg/dL) 138 H 183 H (75-99) mg/dL Hemoglobin A1c 6.8 H (4.2-6.1) % 10/05/16 10/05/16 Range/Units 16:39 20:13 POC Glucose (mg/dL) 140 H 167 H (75-99) mg/dL Hemoglobin A1c (4.2-6.1) % Microbiology - Last 24 Hours (Table) 10/04/16 16:34 Wound Culture - Preliminary Foot - Right Laboratory Results WBC 12.1 k/uL (3.8-10.6) H 10/04/16 17:15 RBC 4.53 m/uL (3.80-5.40) 10/04/16 17:15 Hgb 12.8 gm/dL (11.4-16.0) 10/04/16 17:15 Hct 38.0 % (34.0-46.0) 10/04/16 17:15 MCV 83.7 fL (80.0-100.0) 10/04/16 17:15 MCH 28.3 pg (25.0-35.0) 10/04/16 17:15 MCHC 33.8 g/dL (31.0-37.0) 10/04/16 17:15 RDW 14.2 % (11.5-15.5) 10/04/16 17:15 Plt Count 268 k/uL (150-450) 10/04/16 17:15 Neutrophils % 70 % 10/04/16 17:15 Lymphocytes % 24 % 10/04/16 17:15 Monocytes % 3 % 10/04/16 17:15 Eosinophils % 1 % 10/04/16 17:15 Basophils % 0 % 10/04/16 17:15 Neutrophils # 8.5 k/uL (1.3-7.7) H 10/04/16 17:15 Lymphocytes # 2.9 k/uL (1.0-4.8) 10/04/16 17:15 Monocytes # 0.4 k/uL (0-1.0) 10/04/16 17:15 Eosinophils # 0.2 k/uL (0-0.7) 10/04/16 17:15 Basophils # 0.0 k/uL (0-0.2) 10/04/16 17:15 Sodium 138 mmol/L (137-145) 10/04/16 17:15 Potassium 4.2 mmol/L (3.5-5.1) 10/04/16 17:15 Chloride 105 mmol/L (98-107) 10/04/16 17:15 Carbon Dioxide 22 mmol/L (22-30) 10/04/16 17:15 Anion Gap 11 mmol/L 10/04/16 17:15 BUN 10 mg/dL (7-17) 10/04/16 17:15 Creatinine 0.39 mg/dL (0.52-1.04) L 10/04/16 17:15 Est GFR (MDRD) Af Amer >60 (>60 ml/min/1.73 sqM) 10/04/16 17:15 Est GFR (MDRD) Non-Af >60 (>60 ml/min/1.73 sqM) 10/04/16 17:15 Glucose 154 mg/dL (74-99) H 10/04/16 17:15 POC Glucose (mg/dL) 167 mg/dL (75-99) H 10/05/16 20:13 POC Glu Absorption Operator Vianey Maradiaga 10/05/16 20:[address] Glu mg/dL 148 mg/dL 10/04/16 17:15 Hemoglobin A1c 6.8 % (4.2-6.1) H 10/04/16 17:15 Calcium 9.6 mg/dL (8.4-10.2) 10/04/16 17:15 Total Bilirubin 0.5 mg/dL (0.2-1.3) 10/04/16 17:15 AST 15 U/L (14-36) 10/04/16 17:15 ALT 24 U/L (9-52) 10/04/16 17:15 Alkaline Phosphatase 61 U/L (38-126) 10/04/16 17:15 Total Protein 7.5 g/dL (6.3-8.2) 10/04/16 17:15 Albumin 4.1 g/dL (3.5-5.0) 10/04/16 17:15 Urine HCG, Qual Not Detected (Not Detectd) 10/05/16 16:52 Microbiology 10/04/16 16:34 Foot - Right Wound Culture - Preliminary Assessment and Plan (1) Diabetic foot ulcer Narrative/Plan: Today after assessing patient's current status and review of patient's past medical history we discussed with patient debridement of the infected tissue on the right hallux. Using a sterile 15 blade excisional debridement of all necrotic tissue was performed on the plantar central and medial aspect of the right hip hallux. Debridement consisted removal of all necrotic infected tissue that was visible down to good viable hemorrhagic tissue. After debridement a dry sterile dressing was applied and orders were given for application of Triple Antibiotic dry sterile dressing at this time. Patient should respond favorably to this debridement along with the IV antibiotics in good wound care management. We will await the MRI to see if there is any osseous involvement of the infection. She was encouraged instructed to continue to follow up in the wound care clinic. Discussed with patient the importance of proper wound care management in order to salvage and prevent amputation of this extremity. Will follow patient as needed. Thank you for this consultation. Status: Acute (2) Diabetes mellitus type 2 with complications, uncontrolled Status: Acute
[2016-10-06] MEDS: NEOMYCIN-BACITRACIN-POLY OINT 14 GM TUBE TOPICAL SCH (09:38)
[2016-10-06 10:07] LABS: ALT 25 U/L (9-52); AST 17 U/L (14-36); Alkaline Phosphatase 53 U/L (38-126); Anion Gap 10 mmol/L; Blood Urea Nitrogen 9 mg/dL (7-17); Carbon Dioxide 22 mmol/L (22-30); Chloride 104 mmol/L (98-107); Glucose 190 mg/dL (74-99); Non-African American GFR(MDRD) >60 (>60 ml/min/1.73 sqM); Potassium 4.3 mmol/L (3.5-5.1); Sodium 136 mmol/L (137-145); Total Bilirubin 0.6 mg/dL (0.2-1.3)
[2016-10-06 11:52] LABS: Glucose,Whole Blood 147 mg/dL (75-99)
--- NOTE | 2016-10-06 12:16 | MR ---
EXAMINATION TYPE: MR foot RT wo/w con DATE OF EXAM: 10/06/2016 COMPARISON: Radiographs 10/04/2016 and 08/21/2016 HISTORY: 21-year-old female INFECTION RT. GREAT TOE Technique: Multiplanar, multisequence images of the right foot were obtained before and after adminis tration of 20 mL intravenous MultiHance gadolinium contrast. FINDINGS: There is soft tissue ulcer along the plantar medial aspect of the great toe at the level of the IP silas int. There is inflammatory and some enhancing soft tissue thickening which extends deep with inflammatory changes and some confluent fluid overlying the flexor tendon. Trace tendon sheath fluid likely reacti ve. There is bone marrow edema extending throughout the great toe distal phalanx without suspicious bone marrow replacement on T1-weighted sequence. Mild degenerative spurring at the first MTP joint Mild diffuse forefoot soft tissue swelling with the greatest soft tissue swelling about the great toe . No significant IMPRESSION: 1. Great toe ulcer medioplantar aspect at the level of the IP joint. There is adjacent cellulitis and probably a reactive flexor tenosynovitis. 2. First distal phalangeal osteitis without suspicious bone marrow replacement to suggest osteomyeli tis at this time.
[2016-10-06] MEDS: diphenhydrAMINE 25 MG CAP PO PRN ×2 (16:14→23:36)
[2016-10-06 17:31] LABS: Glucose,Whole Blood 180 mg/dL (75-99)
--- NOTE | 2016-10-06 17:59 | P.PN ---
Subjective Ms. Clarke is a diabetic who comes in to the hospital with complains of right total wound that has progressively gotten worse. Patient has a diabetic foot wound that is being seen and cared by Dr. 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 Denies having any fevers headaches chills nausea vomiting diarrhea urinary urgency or frequency Patient has not been using a specialized boots over the recent times States to have some increased tenderness in her right total As been compliant with her diabetic medications 10/06/2016 Status post right great toe debridement Denies having fevers chills nausea vomiting diarrhea urinary urgency or frequency at this time Objective - Vital Signs Vital signs: Vital Signs Temp 98.0 F 10/06/16 15:00 Pulse 83 10/06/16 15:00 Resp 16 10/06/16 15:00 BP 121/77 10/06/16 15:00 Pulse Ox 100 10/06/16 15:00 Intake & Output 10/05/16 10/06/16 10/06/16 18:59 06:59 18:59 Intake Total 2180 1360 Balance 2180 1360 Intake: Intake, IV Titration 740 880 Amount Ampicillin-Sulbactam 1.5 100 gm In Sodium Chloride 0.9 % 50 ml @ 100 mls/hr IVPB TID GAVIN Rx#:[id number] Sodium Chloride 0.9% 1, 640 880 000 ml @ 80 mls/hr IV . [id number] GAVIN Rx#:[id number] Oral 1440 480 Other: # Voids 1 3 - Exam Physical exam Gen. appearance oriented 3 in no distress Neck is supple no JVD Lungs good air entry clear to auscultation no rhonchi or wheezing Heart S1-S2 heard regular rate and rhythm no murmurs appreciated Abdomen is soft nontender no organomegaly bowel sounds are intact Neurologically cranial nerves II-12 grossly intact no focal motor or sensory deficits noted Skin no abnormalities appreciated Bandage over the right toe status post debridement - Labs CBC & Chem 7: 10/04/16 17:15 10/06/16 09:07 Labs: Abnormal Lab Results - Last 24 Hours (Table) 10/05/16 10/06/16 10/06/16 Range/Units 20:13 07:28 09:07 Sodium 136 L (137-145) mmol/L Creatinine 0.42 L (0.52-1.04) mg/dL Glucose 190 H (74-99) mg/dL POC Glucose (mg/dL) 167 H 133 H (75-99) mg/dL 10/06/16 10/06/16 Range/Units 11:50 17:27 Sodium (137-145) mmol/L Creatinine (0.52-1.04) mg/dL Glucose (74-99) mg/dL POC Glucose (mg/dL) 147 H 180 H (75-99) mg/dL Assessment and Plan Plan: #1 diabetic foot infection #2 diabetes mellitus #3 peripheral neuropathy #4 obesity Plan continue with antibiotic therapy MRI results are pending Glycemic control Continue home regimen of Levemir and NovoLog sliding scale
[2016-10-06 20:18] LABS: Glucose,Whole Blood 196 mg/dL (75-99)
[2016-10-06] MEDS: INSULIN GLARGINE 100 UNIT/ML 10 ML VIAL SQ SCH (20:33)
[2016-10-06] MEDS: SODIUM CHLORIDE 0.9% 1,000 ML IV SCH (20:42)
[2016-10-07 07:07] LABS: Glucose,Whole Blood 137 mg/dL (75-99)
[2016-10-07 07:17] VITALS: BP 116/81; PULSE 79; RESP 14; TEMP 98
[2016-10-07] MEDS: INSULIN LISPRO (humaLOG) 300 UNIT/3 ML VIAL SQ SCH ×2 (07:47→13:07)
[2016-10-07] MEDS: SODIUM CHLORIDE 0.9% 1,000 ML IV SCH (07:49)
[2016-10-07] MEDS: NEOMYCIN-BACITRACIN-POLY OINT 14 GM TUBE TOPICAL SCH (07:50)
[2016-10-07] MEDS: diphenhydrAMINE 25 MG CAP PO PRN ×2 (07:53→13:08)
[2016-10-07] MEDS: HYDROcodone/APAP 7.5-325MG 1 EACH TAB PO PRN ×2 (07:53→13:08)
[2016-10-07] MEDS: AMPICILLIN-SULBACTAM 1.5 GM in SODIUM CHLORIDE 0.9% 50 ML IVPB SCH ×2 (07:54→15:15)
[2016-10-07] MEDS: PREGABALIN 75 MG CAP PO SCH (07:54)
[2016-10-07] MEDS ORDERED: ONDANSETRON 4 MG/2 ML VIAL IVP PRN (10:13)
[2016-10-07 11:42] LABS: Glucose,Whole Blood 192 mg/dL (75-99)
--- NOTE | 2016-10-07 18:12 | P.DS ---
Providers Date of admission: 10/04/16 16:43 Attending physician: Elaine Aparicio Consults: 10/04/16 16:43 Consult Physician Stat Consulting Provider: Pal Andujar Consult Reason/Comments: Infected right great toe Do you want consulting provider notified?: Yes, Notify in am Consult Physician Stat Consulting Provider: Kris Bradford Consult Reason/Comments: Wound clinic, debridement, right great toe Do you want consulting provider notified?: Yes, Notify in am Primary care physician: Tomeka Jsoeph [facility] Course: Ms. Clarke is a diabetic who comes in to the hospital with complains of right total wound that has progressively gotten worse. Patient has a diabetic foot wound that is being seen and cared by Dr. 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 appearance oriented 3 in no distress Neck is supple no JVD Lungs good air entry clear to auscultation no rhonchi or wheezing Heart S1-S2 heard regular rate and rhythm no murmurs appreciated Abdomen is soft nontender no organomegaly bowel sounds are intact Neurologically cranial nerves II-12 grossly intact no focal motor or sensory deficits noted Skin no abnormalities appreciated Bandage over the right toe status post debridement Assessment and Plan Plan: #1 diabetic foot infection #2 diabetes mellitus #3 peripheral neuropathy #4 obesity RA does not show signs of osteomyelitis However there is some clinical suspicion we'll discharge the patient on Augmentin 875/125 for 10 days patient is to be seen by patient's cloth picker in the next 24 hours Patient Condition at Discharge: Serious Plan - Discharge Summary New Discharge Prescriptions: New Amoxic-Pot Clav 875-125Mg [Augmentin 875-125] 1 tab PO Q12HR #20 tablet Kbmcyzec-Hgpuxywpgj-Ndwx Oint [Triple Antibiotic Ointment] 1 applic TOPICAL DAILY #10 dose Continue Albuterol Inhaler [Ventolin Hfa Inhaler] 2 puff INHALATION RT-QID PRN PRN Reason: Shortness Of Breath Insulin Glargine [Lantus] 26 unit SQ HS #1 vial Pregabalin [Lyrica] 75 mg PO BID #60 cap Insulin Glulisine [Apidra] See Protocol SQ AC-TID Discharge Medication List Albuterol Inhaler [Ventolin Hfa Inhaler] 2 puff INHALATION RT-QID PRN 03/16/16 [ History] Insulin Glargine [Lantus] 26 unit SQ HS #1 vial 03/23/16 [Rx] Pregabalin [Lyrica] 75 mg PO BID #60 cap 04/20/16 [Rx] Insulin Glulisine [Apidra] See Protocol SQ AC-TID 07/10/16 [History] Amoxic-Pot Clav 875-125Mg [Augmentin 875-125] 1 tab PO Q12HR #20 tablet [Rx] Flidtcwb-Rozatlpapu-Izgl Oint [Triple Antibiotic Ointment] 1 applic TOPICAL DAILY #10 dose 10/07/16 [Rx] Follow up Appointment(s)/Referral(s): Benito Eckert MD [Primary Care Provider] - 1-2 days (Office will call pt with appt. ) Kris Bradford DPM [STAFF PHYSICIAN] - 10/08/16 3:00 pm Pal Andujar MD [STAFF PHYSICIAN] - 1 Week (Dr. Andujar will see patient in wound center. Office Will call pt with appt.) Discharge Disposition: HOME SELF-CARE
== END 2016-10-07 17:23 | disposition home or self-care (01) ==
LOC: EC 15:19 → INTOOBSV 16:43 → 3SUR 16:43
PROVIDERS: ADMIT Internal Medicine; ATTEND Internal Medicine
DX: L08.9 Local infection of the skin and subcutaneous tissue, unspecified (principal); E11.621 Type 2 diabetes mellitus with foot ulcer; E11.42 Type 2 diabetes mellitus with diabetic polyneuropathy; E66.9 Obesity, unspecified; Z68.41 Body mass index [BMI] 40.0-44.9, adult; L97.519 Non-pressure chronic ulcer of other part of right foot with unspecified severity; E11.65 Type 2 diabetes mellitus with hyperglycemia; E28.2 Polycystic ovarian syndrome; F41.9 Anxiety disorder, unspecified; F32.9 Major depressive disorder, single episode, unspecified; F17.200 Nicotine dependence, unspecified, uncomplicated; I10 Essential (primary) hypertension; K21.9 Gastro-esophageal reflux disease without esophagitis; Z89.412 Acquired absence of left great toe; Z79.4 Long term (current) use of insulin; Z79.899 Other long term (current) drug therapy; Z83.3 Family history of diabetes mellitus
CPT/HCPCS: 11000; 96361 ×3; 96365; 96366 ×3; 99284; 80053 ×2; 83036; 85025; 81025; 73630; 73720; G0378 ×4; J2405; J0295 ×4; A9577; 87070; 87205

== ENCOUNTER 2016-11-26 14:12 | Emergency (ER) | payer OTHER ==
[2016-11-26] MEDS ORDERED: SODIUM CHLORIDE 0.9% 1,000 ML IV STA (14:48)
--- NOTE | 2016-11-26 14:52 | ED ---
General Adult HPI - General Chief complaint: OB/Uterine Contractions Stated complaint: Diabetes/ Time Seen by Provider: 11/26/16 14:40 Source: patient, RN notes reviewed Mode of arrival: ambulatory Limitations: no limitations - History of Present Illness Initial comments: 21-year-old female presents to the emergency department with a chief complaint of . Patient states she took 3 test at home and they were positive. Patient states she is a diabetic and she was concerned about her medications. Patient states that . Patient states that besides some right upperabdominal pain/right lower rib pain she has no other complaints. Patient states it just comes and goes at random times if she rubs it goes away. Patient denies any fever chills with this. Patient denies any lower abdominal pain vaginal bleeding or discharge. Patient was concerned due to her diabetes with so she thought that she should be seen. Her last menstrual period was in July however she had negative test in September so she believes she was about 2 months . Patient denies any recent fever , chills, shortness of breath, chest pain, back pain, nausea vomiting, numbness or tingling, dysuria or hematuria, constipation or diarrhea, headaches or visual changes, or any other current symptoms. - Related Data Home Medications Medication Instructions Recorded Confirmed Albuterol Inhaler [Ventolin Hfa 2 puff INHALATION RT-QID PRN 03/16/16 11/26/16 Inhaler] Insulin Glulisine [Apidra] See Protocol SQ AC-TID 07/10/16 11/26/16 Insulin Glargine [Lantus] 25 unit SQ HS 11/26/16 11/26/16 Insulin Glulisine [Apidra] 4 unit SQ AC-TID 11/26/16 11/26/16 Previous Rx's Medication Instructions Recorded Pregabalin [Lyrica] 75 mg PO BID #60 cap 04/20/16 Allergies Allergy/AdvReac Type Severity Reaction Status Date / Time No Known Allergies Allergy Verified 11/26/16 15:03 Review of Systems ROS Statement: Those systems with pertinent positive or pertinent negative responses have been documented in the HPI. ROS Other: All systems not noted in ROS Statement are negative. Past Medical History Past Medical History: Diabetes Mellitus, GERD/Reflux, Hypertension Additional Past Medical History / Comment(s): Polycystic ovarian disease, recurrent pressure ulcers bilateral feet, osteomyelitis with L great toe amputation, past L thigh abscess with cellulitis, States hx of htn, but none now. WEARS BOOT ON LEFT FOOT, AND HAS DRESSING History of Any Multi-Drug Resistant Organisms: None Reported Past Surgical History: Orthopedic Surgery Additional Past Surgical History / Comment(s): WOUND CENTER PT. lt great toe amputation, lt achilles tendon repair, removal of part of left fifth metatarsal for osteomyelitis, I&D LT FOOT(ULCER). PICC LINE Past Anesthesia/Blood Transfusion Reactions: No Reported Reaction Past Psychological History: Anxiety, Depression Smoking Status: Current every day smoker Past Alcohol Use History: None Reported Past Drug Use History: None Reported - Past Family History Mother Family Medical History: Liver Disease Additional Family Medical History / Comment(s): Hx Chrons and colitis. age 35 with liver problems due to ETOH use. Father Family Medical History: Hyperlipidemia, Hypertension Additional Family Medical History / Comment(s): grand father had and mi, grand mother had copd, chf,dm,bp General Exam - General Exam Comments Initial Comments: General: The patient is awake and alert, in no distress, and does not appear acutely ill. Eye: Pupils are equal, round and reactive to light, extra-ocular movements are intact; there is normal conjunctiva bilaterally. No signs of icterus. Ears, nose, mouth and throat: There are moist mucous membranes. Neck: The neck is supple, there is no tenderness. Cardiovascular: There is a regular rate and rhythm. No murmur, rub or gallop is appreciated. Respiratory: Lungs are clear to auscultation, respirations are non-labored, breath sounds are equal. No wheezes, stridor, rales, or rhonchi. Gastrointestinal: Soft, non-distended, non-tender abdomen without masses or organomegaly noted. There is no rebound or guarding present. No CVA tenderness. Bowel sounds are unremarkable. Back: There is no tenderness to palpation in the midline. There is no obvious deformity. No rashes noted. Musculoskeletal: Normal ROM, no tenderness, There is no pedal edema. There is no calf tenderness or swelling. Sensation intact. Pulses equal bilaterally 2+. Neurological: CN II-XII intact, There are no obvious motor or sensory deficits. Coordination appears grossly intact. Speech is normal. Skin: Skin is warm and dry and no rashes or lesions are noted. Psychiatric: Cooperative, appropriate mood & affect, normal judgment. Limitations: no limitations Course Vital Signs 11/26/16 14:15 Temperature 98 F Pulse Rate 89 Respiratory 20 Rate Blood Pressure 138/90 O2 Sat by Pulse 98 Oximetry Medical Decision Making - Medical Decision Making 21-year-old female presents emergency 5 chief complaint of concern for diabetes in .this and we discussed Levaquin the patient. We discussed continuing hydration. We discussed during the medications. Discussed continuing the insulin calling her doctor to follow-up. We discussed return parameters all patient's questions. They stated she displayed. This time they will be discharged home. - Lab Data Result diagrams: 11/26/16 15:10 11/26/16 15:10 Lab Results 11/26/16 11/26/16 11/26/16 Range/Units 15:10 15:10 15:39 WBC 10.0 (3.8-10.6) k/uL RBC 4.07 (3.80-5.40) m/uL Hgb 11.6 (11.4-16.0) gm/dL Hct 34.2 (34.0-46.0) % MCV 83.9 (80.0-100.0) fL MCH 28.5 (25.0-35.0) pg MCHC 33.9 (31.0-37.0) g/dL RDW 14.8 (11.5-15.5) % Plt Count 238 (150-450) k/uL Neutrophils % 66 % Lymphocytes % 27 % Monocytes % 4 % Eosinophils % 2 % Basophils % 0 % Neutrophils # 6.6 (1.3-7.7) k/uL Lymphocytes # 2.7 (1.0-4.8) k/uL Monocytes # 0.4 (0-1.0) k/uL Eosinophils # 0.2 (0-0.7) k/uL Basophils # 0.0 (0-0.2) k/uL Sodium 136 L (137-145) mmol/L Potassium 4.0 (3.5-5.1) mmol/L Chloride 104 (98-107) mmol/L Carbon Dioxide 23 (22-30) mmol/L Anion Gap 9 mmol/L BUN 5 L (7-17) mg/dL Creatinine 0.35 L (0.52-1.04) mg/dL Est GFR (MDRD) Af Amer >60 (>60 ml/min/1.73 sqM) Est GFR (MDRD) Non-Af >60 (>60 ml/min/1.73 sqM) Glucose 116 H (74-99) mg/dL Calcium 9.3 (8.4-10.2) mg/dL Total Bilirubin 0.2 (0.2-1.3) mg/dL AST 10 L (14-36) U/L ALT 14 (9-52) U/L Alkaline Phosphatase 52 (38-126) U/L Total Protein 7.2 (6.3-8.2) g/dL Albumin 3.9 (3.5-5.0) g/dL Amylase <30 L (30-110) U/L Lipase 36 (23-300) U/L Urine Color Yellow Urine Appearance Cloudy H (Clear) Urine pH 7.5 (5.0-8.0) Ur Specific [place] 1.011 (1.001-1.035) Urine Protein Negative (Negative) Urine Glucose (UA) Negative (Negative) Urine Ketones Negative (Negative) Urine Blood Negative (Negative) Urine Nitrite Negative (Negative) Urine Bilirubin Negative (Negative) Urine Urobilinogen <2.0 (<2.0) mg/dL Ur Leukocyte Esterase Moderate H (Negative) Urine RBC 1 (0-5) /hpf Urine WBC 20 H (0-5) /hpf Ur Squamous Epith Cells 7 H (0-4) /hpf Amorphous Sediment Occasional H (None) /hpf Urine Sperm Rare (None) /hpf Disposition Clinical Impression: , Rib pain on right side Disposition: HOME SELF-CARE Condition: Stable Instructions: (ED) Additional Instructions: Please use medication as discussed. Please follow up with family doctor if symptoms have not improved over the next two days. Please return to the emergency room if your symptoms increase or worsen or for any other concerns. Please follow up with your doctor as discussed. Start taking a daily vitamin. Referrals: Benito Eckert MD [Primary Care Provider] - 1-2 days
[2016-11-26 15:20] LABS: Basophils % (A) 0 %; CH 29.8; CHCM 35.7; Eosinophils # (A) 0.2 k/uL (0-0.7); Eosinophils % (A) 2 %; HCT 34.2 % (34.0-46.0); HDW 3.04; HGB 11.6 gm/dL (11.4-16.0); Luc # (Auto) 0.13; Luc % (Auto) 1; Lymphocytes # (A) 2.7 k/uL (1.0-4.8); Lymphocytes % (A) 27 %; MCH 28.5 pg (25.0-35.0); MCHC 33.9 g/dL (31.0-37.0); MCV 83.9 fL (80.0-100.0); Mean Platelet Volume 7.3; Monocytes # (A) 0.4 k/uL (0-1.0); Monocytes % (A) 4 %; Neutrophils # (A) 6.6 k/uL (1.3-7.7); Neutrophils % (A) 66 %; RBC 4.07 m/uL (3.80-5.40); RDW 14.8 % (11.5-15.5); WBC (Perox) 10.48
[2016-11-26 15:29] LABS: ALT 14 U/L (9-52); AST 10 U/L (14-36); Alkaline Phosphatase 52 U/L (38-126); Amylase <30 U/L (30-110); Anion Gap 9 mmol/L; Blood Urea Nitrogen 5 mg/dL (7-17); Calcium 9.3 mg/dL (8.4-10.2); Carbon Dioxide 23 mmol/L (22-30); Chloride 104 mmol/L (98-107); Glucose 116 mg/dL (74-99); Non-African American GFR(MDRD) >60 (>60 ml/min/1.73 sqM); Sodium 136 mmol/L (137-145); Total Bilirubin 0.2 mg/dL (0.2-1.3); Total Protein 7.2 g/dL (6.3-8.2)
[2016-11-26 15:50] LABS: Amorphous Sediment,Urine Occasional /hpf; Appearance,Urine Cloudy (Clear); Bilirubin,Urine Negative (Negative); Glucose,Urine (UA) Negative (Negative); Ketones,Urine Negative (Negative); Leukocyte Esterase,Urine Moderate (Negative); Nitrite,Urine Negative (Negative); PH, Urine 7.5 (5.0-8.0); Particle Count 2318; Protein,Urine Negative (Negative); RBC,Urine 1 /hpf (0-5); Specific Gravity,Urine 1.011 (1.001-1.035); Sperm,Urine Rare /hpf; Squamous Epithelial Cell,Urine 7 /hpf (0-4); UA Billing (MACRO vs. MICRO) MICRO; Urobilinogen,Urine <2.0 mg/dL (<2.0); WBC,Urine 20 /hpf (0-5)
[2016-11-26 16:27] VITALS: BP 139/88; PULSE 86; RESP 18; TEMP 98.3
== END 2016-11-26 16:27 | disposition home or self-care (01) ==
LOC: EC 14:12
DX: O99.89 Other specified diseases and conditions complicating pregnancy, childbirth and the puerperium (principal); R07.81 Pleurodynia; R10.11 Right upper quadrant pain; O24.911 Unspecified diabetes mellitus in pregnancy, first trimester; O99.331 Smoking (tobacco) complicating pregnancy, first trimester; F17.200 Nicotine dependence, unspecified, uncomplicated; Z3A.01 Less than 8 weeks gestation of pregnancy; Z79.4 Long term (current) use of insulin
CPT/HCPCS: 36415; 80053; 81001; 82150; 83690; 84702; 85025; 96360; 99283

== ENCOUNTER 2016-12-21 11:04 | Emergency (ER) | payer OTHER ==
[2016-12-21 11:14] VITALS: RESP 18
[2016-12-21 11:16] LABS: Glucose,Whole Blood 131 mg/dL (75-99)
[2016-12-21] MEDS ORDERED: SODIUM CHLORIDE 0.9% 1,000 ML IV STA (11:31)
--- NOTE | 2016-12-21 11:58 | ED ---
General Adult HPI - General Chief complaint: Recheck/Abnormal Lab/Rx Stated complaint: HYPERGLYCEMIA, UNDER 20 WEEKS Time Seen by Provider: 12/21/16 11:22 Source: patient, RN notes reviewed Mode of arrival: ambulatory Limitations: no limitations - History of Present Illness Initial comments: 20-year-old female presents to the emergency department with a chief complaint of hyperglycemia. Patient states she is about 15 weeks . Patient states she's been suffering from diabetes ever since she was a teenager. Patient states he was that her glucose was in the 300s today which concerned her. Patient states she took her insulin and then she came here. Patient states that she does just feel a little off like her sugar may be running high. Patient denies any history of DVT in the past. This is her first . Patient is abdominal pain or vaginal bleeding or abdominal cramping. They deny any other symptoms at this time. Patient denies any recent fever, chills, shortness of breath, chest pain, back pain, abdominal pain, nausea vomiting, numbness or tingling, dysuria or hematuria, constipation or diarrhea, headaches or visual changes, or any other current symptoms. - Related Data Home Medications Medication Instructions Recorded Confirmed Albuterol Inhaler [Ventolin Hfa 2 puff INHALATION RT-QID PRN 03/16/16 12/21/16 Inhaler] Insulin Glulisine [Apidra] See Protocol SQ AC-TID 07/10/16 12/21/16 Insulin Glargine [Lantus] 25 unit SQ HS 11/26/16 12/21/16 Insulin Glulisine [Apidra] 4 unit SQ AC-TID 11/26/16 12/21/16 Pnv No.95/Ferrous Fum/Folic AC 1 tab PO DAILY 12/10/16 12/21/16 [ Multivitamin Tablet] Allergies Allergy/AdvReac Type Severity Reaction Status Date / Time No Known Allergies Allergy Verified 12/21/16 11:35 Review of Systems ROS Statement: Those systems with pertinent positive or pertinent negative responses have been documented in the HPI. ROS Other: All systems not noted in ROS Statement are negative. Past Medical History Past Medical History: Diabetes Mellitus, GERD/Reflux, Hypertension Additional Past Medical History / Comment(s): Polycystic ovarian disease, recurrent pressure ulcers bilateral feet, osteomyelitis with L great toe amputation, past L thigh abscess with cellulitis, States hx of htn, but none now. WEARS BOOT ON LEFT FOOT, AND HAS DRESSING History of Any Multi-Drug Resistant Organisms: None Reported Past Surgical History: Orthopedic Surgery Additional Past Surgical History / Comment(s): WOUND CENTER PT. lt great toe amputation, lt achilles tendon repair, removal of part of left fifth metatarsal for osteomyelitis, I&D LT FOOT(ULCER). PICC LINE Past Anesthesia/Blood Transfusion Reactions: No Reported Reaction Past Psychological History: Anxiety, Depression Smoking Status: Current every day smoker Past Alcohol Use History: None Reported Past Drug Use History: None Reported - Past Family History Mother Family Medical History: Liver Disease Additional Family Medical History / Comment(s): Hx Chrons and colitis. age 35 with liver problems due to ETOH use. Father Family Medical History: Hyperlipidemia, Hypertension Additional Family Medical History / Comment(s): grand father had and mi, grand mother had copd, chf,dm,bp General Exam - General Exam Comments Initial Comments: General: The patient is awake and alert, in no distress, and does not appear acutely ill. Eye: Pupils are equal, round and reactive to light, extra-ocular movements are intact; there is normal conjunctiva bilaterally. No signs of icterus. Ears, nose, mouth and throat: There are moist mucous membranes. Neck: The neck is supple, there is no tenderness. Cardiovascular: There is a regular rate and rhythm. No murmur, rub or gallop is appreciated. Respiratory: Lungs are clear to auscultation, respirations are non-labored, breath sounds are equal. No wheezes, stridor, rales, or rhonchi. Gastrointestinal: Soft, non-distended, non-tender abdomen without masses or organomegaly noted. There is no rebound or guarding present. No CVA tenderness. Bowel sounds are unremarkable. Back: There is no tenderness to palpation in the midline. There is no obvious deformity. No rashes noted. Musculoskeletal: Normal ROM, no tenderness, There is no pedal edema. There is no calf tenderness or swelling. Sensation intact. Pulses equal bilaterally 2+. Neurological: CN II-XII intact, There are no obvious motor or sensory deficits. Coordination appears grossly intact. Speech is normal. Skin: Skin is warm and dry and no rashes or lesions are noted. Psychiatric: Cooperative, appropriate mood & affect, normal judgment. Limitations: no limitations Course Vital Signs 12/21/16 12/21/16 11:09 12:33 Temperature 97.5 F L Pulse Rate 96 90 Respiratory 18 18 Rate Blood Pressure 135/85 117/67 O2 Sat by Pulse 96 98 Oximetry Medical Decision Making - Medical Decision Making 21-year-old female presents emergency Department chief complaint of concern for hyperglycemia. this time patient's laboratory is reviewed and Stable. heart tones reviewed. At this time we discussed continued follow-up with her OB /LIFE SKILLS INSTRUCTOR. We discussed return parameters all the questions. He stated the [facility] management plan. All questions have been answered. They will be discharged home. - Lab Data Result diagrams: 12/21/16 11:59 12/21/16 11:59 Lab Results 12/21/16 12/21/16 12/21/16 Range/Units 11:15 11:59 11:59 WBC 11.2 H (3.8-10.6) k/uL RBC 3.85 (3.80-5.40) m/uL Hgb 11.5 (11.4-16.0) gm/dL Hct 31.6 L (34.0-46.0) % MCV 82.1 (80.0-100.0) fL MCH 29.8 (25.0-35.0) pg MCHC 36.3 (31.0-37.0) g/dL RDW 15.2 (11.5-15.5) % Plt Count 254 (150-450) k/uL Neutrophils % 69 % Lymphocytes % 25 % Monocytes % 4 % Eosinophils % 1 % Basophils % 0 % Neutrophils # 7.8 H (1.3-7.7) k/uL Lymphocytes # 2.7 (1.0-4.8) k/uL Monocytes # 0.4 (0-1.0) k/uL Eosinophils # 0.2 (0-0.7) k/uL Basophils # 0.0 (0-0.2) k/uL Sodium 135 L (137-145) mmol/L Potassium 4.4 (3.5-5.1) mmol/L Chloride 103 (98-107) mmol/L Carbon Dioxide 22 (22-30) mmol/L Anion Gap 10 mmol/L BUN 6 L (7-17) mg/dL Creatinine 0.36 L (0.52-1.04) mg/dL Est GFR (MDRD) Af Amer >60 (>60 ml/min/1.73 sqM) Est GFR (MDRD) Non-Af >60 (>60 ml/min/1.73 sqM) Glucose 107 H (74-99) mg/dL POC Glucose (mg/dL) 131 H (75-99) mg/dL POC Glu Teletray Operator ID Lea Baez Calcium 9.9 (8.4-10.2) mg/dL Total Bilirubin 0.3 (0.2-1.3) mg/dL AST 15 (14-36) U/L ALT 19 (9-52) U/L Alkaline Phosphatase 59 (38-126) U/L Total Protein 7.2 (6.3-8.2) g/dL Albumin 4.0 (3.5-5.0) g/dL Urine Color Urine Appearance (Clear) Urine pH (5.0-8.0) Ur Specific [place] (1.001-1.035) Urine Protein (Negative) Urine Glucose (UA) (Negative) Urine Ketones (Negative) Urine Blood (Negative) Urine Nitrite (Negative) Urine Bilirubin (Negative) Urine Urobilinogen (<2.0) mg/dL Ur Leukocyte Esterase (Negative) Urine WBC (0-5) /hpf Ur Squamous Epith Cells (0-4) /hpf Urine Bacteria (None) /hpf Urine Mucus (None) /hpf Urine HCG, Qual (Not Detectd) Acetone, Qual Negative (Negative) 12/21/16 12/21/16 Range/Units 12:19 12:19 WBC (3.8-10.6) k/uL RBC (3.80-5.40) m/uL Hgb (11.4-16.0) gm/dL Hct (34.0-46.0) % MCV (80.0-100.0) fL MCH (25.0-35.0) pg MCHC (31.0-37.0) g/dL RDW (11.5-15.5) % Plt Count (150-450) k/uL Neutrophils % % Lymphocytes % % Monocytes % % Eosinophils % % Basophils % % Neutrophils # (1.3-7.7) k/uL Lymphocytes # (1.0-4.8) k/uL Monocytes # (0-1.0) k/uL Eosinophils # (0-0.7) k/uL Basophils # (0-0.2) k/uL Sodium (137-145) mmol/L Potassium (3.5-5.1) mmol/L Chloride (98-107) mmol/L Carbon Dioxide (22-30) mmol/L Anion Gap mmol/L BUN (7-17) mg/dL Creatinine (0.52-1.04) mg/dL Est GFR (MDRD) Af Amer (>60 ml/min/1.73 sqM) Est GFR (MDRD) Non-Af (>60 ml/min/1.73 sqM) Glucose (74-99) mg/dL POC Glucose (mg/dL) (75-99) mg/dL POC Glu Teletray Operator ID Calcium (8.4-10.2) mg/dL Total Bilirubin (0.2-1.3) mg/dL AST (14-36) U/L ALT (9-52) U/L Alkaline Phosphatase (38-126) U/L Total Protein (6.3-8.2) g/dL Albumin (3.5-5.0) g/dL Urine Color Yellow Urine Appearance Cloudy H (Clear) Urine pH 7.5 (5.0-8.0) Ur Specific [place] 1.012 (1.001-1.035) Urine Protein Negative (Negative) Urine Glucose (UA) Negative (Negative) Urine Ketones Negative (Negative) Urine Blood Negative (Negative) Urine Nitrite Negative (Negative) Urine Bilirubin Negative (Negative) Urine Urobilinogen <2.0 (<2.0) mg/dL Ur Leukocyte Esterase Small H (Negative) Urine WBC 1 (0-5) /hpf Ur Squamous Epith Cells 6 H (0-4) /hpf Urine Bacteria Rare H (None) /hpf Urine Mucus Rare H (None) /hpf Urine HCG, Qual Detected (Not Detectd) Acetone, Qual (Negative) Disposition Clinical Impression: Hyperglycemia in Disposition: HOME SELF-CARE Condition: Stable Instructions: Gestational Diabetes (ED) Additional Instructions: Please use medication as discussed. Please follow up with family doctor if symptoms have not improved over the next two days. Please return to the emergency room if your symptoms increase or worsen or for any other concerns. Referrals: Benito Eckert MD [Primary Care Provider] - 1-2 days Time of Disposition: 13:55
[2016-12-21 12:15] LABS: Basophils % (A) 0 %; CH 29.5; CHCM 36.1; Eosinophils # (A) 0.2 k/uL (0-0.7); Eosinophils % (A) 1 %; HCT 31.6 % (34.0-46.0); HGB 11.5 gm/dL (11.4-16.0); Luc # (Auto) 0.13; Luc % (Auto) 1; Lymphocytes # (A) 2.7 k/uL (1.0-4.8); Lymphocytes % (A) 25 %; MCH 29.8 pg (25.0-35.0); MCHC 36.3 g/dL (31.0-37.0); MCV 82.1 fL (80.0-100.0); Mean Platelet Volume 6.6; Monocytes # (A) 0.4 k/uL (0-1.0); Monocytes % (A) 4 %; Neutrophils # (A) 7.8 k/uL (1.3-7.7); Neutrophils % (A) 69 %; RBC 3.85 m/uL (3.80-5.40); RDW 15.2 % (11.5-15.5); WBC 11.2 k/uL (3.8-10.6); WBC (Perox) 10.71
[2016-12-21 12:38] LABS: ALT 19 U/L (9-52); AST 15 U/L (14-36); Alkaline Phosphatase 59 U/L (38-126); Anion Gap 10 mmol/L; Blood Urea Nitrogen 6 mg/dL (7-17); Calcium 9.9 mg/dL (8.4-10.2); Carbon Dioxide 22 mmol/L (22-30); Chloride 103 mmol/L (98-107); Glucose 107 mg/dL (74-99); Non-African American GFR(MDRD) >60 (>60 ml/min/1.73 sqM); Potassium 4.4 mmol/L (3.5-5.1); Sodium 135 mmol/L (137-145); Total Bilirubin 0.3 mg/dL (0.2-1.3); Total Protein 7.2 g/dL (6.3-8.2)
[2016-12-21 12:45] LABS: Appearance,Urine Cloudy (Clear); Bacteria,Urine Rare /hpf; Bilirubin,Urine Negative (Negative); Glucose,Urine (UA) Negative (Negative); Ketones,Urine Negative (Negative); Leukocyte Esterase,Urine Small (Negative); Mucus,Urine Rare /hpf; Nitrite,Urine Negative (Negative); PH, Urine 7.5 (5.0-8.0); Particle Count 4613; Protein,Urine Negative (Negative); Specific Gravity,Urine 1.012 (1.001-1.035); Squamous Epithelial Cell,Urine 6 /hpf (0-4); UA Billing (MACRO vs. MICRO) MICRO; Urobilinogen,Urine <2.0 mg/dL (<2.0); WBC,Urine 1 /hpf (0-5)
[2016-12-21 14:12] VITALS: BP 140/91; PULSE 92; TEMP 97.9
== END 2016-12-21 14:17 | disposition home or self-care (01) ==
LOC: EC 11:04
DX: O24.112 Pre-existing type 2 diabetes mellitus, in pregnancy, second trimester (principal); E11.65 Type 2 diabetes mellitus with hyperglycemia; O99.332 Smoking (tobacco) complicating pregnancy, second trimester; F17.200 Nicotine dependence, unspecified, uncomplicated; Z3A.15 15 weeks gestation of pregnancy; Z79.4 Long term (current) use of insulin; Z79.899 Other long term (current) drug therapy
CPT/HCPCS: 36415; 80053; 81001; 81025; 82009; 85025; 96360; 99283

== ENCOUNTER → 2016-12-29 | Outpatient (CLI) | payer OTHER ==
--- NOTE | 2016-12-29 10:55 | US ---
EXAMINATION TYPE: US OB >= 14 wk fetus DATE OF EXAM: 12/29/2016 COMPARISON: None CLINICAL HISTORY: Pre-existing diabetes mellitus in 2nd tr Confirm dates, diabetes TECHNIQUE: Transabdominal (TA) GESTATIONAL AGE / DATING Physician Established: not established Dates by LMP: (24 weeks/3 days) EDC: 04/17/17 Dates by First Scan: no prior scan here Dates by Current Scan: (16 weeks/4 days) EDC: 06/11/17 SURVEY IUP: Single PLACENTA: Anterior PREVIA: No Previa SHAYAN: 10.1 cm Normal CERVICAL LENGTH (transabdominal: norm > 3.0cm): 3.4 cm BIOMETRY PRESENTATION: Variable LIE: Transverse with head maternal RT BPD: 3.4 cm 16 weeks / 4 days HC: 12.6 cm 16 weeks / 3 days AC: 10.7 cm 16 weeks / 4 days FL: 2.2 cm 16 weeks / 4 days ESTIMATED WEIGHT IN GRAMS: 160 grams ESTIMATED WEIGHT IN LBS/OZ: 0 lbs. 6 oz. WEIGHT PERCENTAGE BASED ON ESTABLISHED DATES: <3% HC/AC: 1.18 Normal FL/AC: 20.57 Normal HEART RATE: 152 bpm RHYTHM: Normal IMPRESSION: Single viable IUP 16wks/4days with SHANITA of 06/11/17.
== END | disposition home or self-care (01) ==
LOC: RADUSWWP 10:10
PROVIDERS: ATTEND Obstetrics & Gynecology
DX: O24.312 Unspecified pre-existing diabetes mellitus in pregnancy, second trimester (principal); Z3A.16 16 weeks gestation of pregnancy
CPT/HCPCS: 76805

== ENCOUNTER 2017-01-01 22:42 | Emergency (ER) | payer OTHER ==
[2017-01-01 22:53] VITALS: RESP 18
[2017-01-01] MEDS ORDERED: ACETAMINOPHEN TAB 325 MG TAB PO STA (23:46)
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
[2017-01-02 00:51] LABS: Anisocytosis Slight; Basophils % (A) 0 %; CH 30.5; CHCM 35.7; Eosinophils # (A) 0.1 k/uL (0-0.7); Eosinophils % (A) 1 %; HCT 30.8 % (34.0-46.0); HGB 10.8 gm/dL (11.4-16.0); Luc # (Auto) 0.11; Luc % (Auto) 1; Lymphocytes # (A) 2.5 k/uL (1.0-4.8); Lymphocytes % (A) 23 %; MCH 30.1 pg (25.0-35.0); Mean Platelet Volume 7.2; Monocytes # (A) 0.4 k/uL (0-1.0); Monocytes % (A) 4 %; Neutrophils # (A) 7.9 k/uL (1.3-7.7); Neutrophils % (A) 71 %; Poikilocytosis Slight; RBC 3.58 m/uL (3.80-5.40); RDW 16.1 % (11.5-15.5); WBC (Perox) 11.21
[2017-01-02 00:56] LABS: Appearance,Urine Clear (Clear); Bilirubin,Urine Negative (Negative); Glucose,Urine (UA) 3+ (Negative); Leukocyte Esterase,Urine Negative (Negative); Nitrite,Urine Negative (Negative); Protein,Urine Trace (Negative); Specific Gravity,Urine 1.024 (1.001-1.035); UA Billing (MACRO vs. MICRO) CHEM; Urobilinogen,Urine <2.0 mg/dL (<2.0)
[2017-01-02 01:00] LABS: INR 0.9 (<1.2); Prothrombin Time 9.4 sec (9.0-12.0)
[2017-01-02 01:01] LABS: ALT 26 U/L (9-52); AST 11 U/L (14-36); Alcohol <10 mg/dL; Alkaline Phosphatase 67 U/L (38-126); Anion Gap 10 mmol/L; Blood Urea Nitrogen 7 mg/dL (7-17); Calcium 9.3 mg/dL (8.4-10.2); Carbon Dioxide 20 mmol/L (22-30); Chloride 105 mmol/L (98-107); Glucose 158 mg/dL (74-99); Non-African American GFR(MDRD) >60 (>60 ml/min/1.73 sqM); Sodium 135 mmol/L (137-145); Total Bilirubin 0.1 mg/dL (0.2-1.3); Total Protein 6.7 g/dL (6.3-8.2)
[2017-01-02 01:10] LABS: Ketones,Urine 2+ (Negative)
[2017-01-02 01:11] LABS: Creatine Kinase <20 U/L (30-135)
[2017-01-02 01:12] LABS: Partial Thromboplastin Time 21.2 sec (22.0-30.0)
[2017-01-02 01:25] LABS: Troponin I <0.012 ng/mL (0.000-0.034)
[2017-01-02 01:33] LABS: Creatine Kinase MB 0.3 ng/mL (0.0-2.4)
[2017-01-02 01:39] VITALS: BP 122/75; PULSE 94; TEMP 98.7
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
== END 2017-01-02 02:27 | disposition home or self-care (01) ==
LOC: EC 22:42
DX: O99.89 Other specified diseases and conditions complicating pregnancy, childbirth and the puerperium (principal); R10.9 Unspecified abdominal pain; O24.112 Pre-existing type 2 diabetes mellitus, in pregnancy, second trimester; E11.9 Type 2 diabetes mellitus without complications; Z3A.16 16 weeks gestation of pregnancy; Z79.4 Long term (current) use of insulin; Z79.899 Other long term (current) drug therapy; Z87.891 Personal history of nicotine dependence; V49.59XA Passenger injured in collision with other motor vehicles in traffic accident, initial encounter; Y92.410 Unspecified street and highway as the place of occurrence of the external cause
CPT/HCPCS: 36415; 76805; 80053; 80306; 80320; 81003; 82009; 82550; 82553; 83605; 84484; 85025; 85610; 85730; 86850; 86900; 86901; 93005; 99284

== ENCOUNTER 2017-04-18 02:13 | Emergency (ER) | payer OTHER ==
[2017-04-18 02:28] VITALS: BP 139/90; PULSE 101; RESP 20; TEMP 97.1
[2017-04-18] MEDS ORDERED: PENICILLIN V POTASSIUM 250 MG TAB PO STA (03:05)
--- NOTE | 2017-04-18 03:06 | ED ---
ENT HPI - General Chief complaint: Dental/Oral Stated complaint: dental pain; 32 weeks Time Seen by Provider: 04/18/17 02:39 Source: patient, RN notes reviewed Mode of arrival: ambulatory Limitations: no limitations - History of Present Illness Initial comments: This a 21-year-old female presents emergency from chief complaint of left upper dental pain. Patient states she's had a broken tooth for a while states she developed pain last 2 days. Patient's concerned about possible infection. Patient is having no complications or . Patient states she tried Tylenol no relief. Patient states she does not cart tipped her dentist yesterday when pain started. Denies any sore throat no difficulty swallowing. Denies neck pain neck stiffness. - Related Data Home Medications Medication Instructions Recorded Confirmed Albuterol Inhaler [Ventolin Hfa 2 puff INHALATION RT-QID PRN 03/16/16 04/18/17 Inhaler] Insulin Glulisine [Apidra] See Protocol SQ AC-TID 07/10/16 04/18/17 Insulin Glargine [Lantus] 25 unit SQ HS 11/26/16 04/18/17 Insulin Glulisine [Apidra] 4 unit SQ AC-TID 11/26/16 04/18/17 Reo-Syat-Egoia Acid 1 cap PO DAILY 01/01/17 04/18/17 [-U Capsule (formulary)] Previous Rx's Medication Instructions Recorded Penicillin V Potassium [Pen Vee K] 500 mg PO QID #40 tablet 04/18/17 Allergies Allergy/AdvReac Type Severity Reaction Status Date / Time No Known Allergies Allergy Verified 04/18/17 02:26 Review of Systems ROS Statement: Those systems with pertinent positive or pertinent negative responses have been documented in the HPI. ROS Other: All systems not noted in ROS Statement are negative. Past Medical History Past Medical History: Diabetes Mellitus, GERD/Reflux, Hypertension Additional Past Medical History / Comment(s): Polycystic ovarian disease, recurrent pressure ulcers bilateral feet, osteomyelitis with L great toe amputation, past L thigh abscess with cellulitis, States hx of htn, but none now. WEARS BOOT ON LEFT FOOT, AND HAS DRESSING History of Any Multi-Drug Resistant Organisms: None Reported Past Surgical History: Orthopedic Surgery Additional Past Surgical History / Comment(s): WOUND CENTER PT. lt great toe amputation, lt achilles tendon repair, removal of part of left fifth metatarsal for osteomyelitis, I&D LT FOOT(ULCER). PICC LINE Past Anesthesia/Blood Transfusion Reactions: No Reported Reaction Past Psychological History: Anxiety, Depression Smoking Status: Former smoker Past Alcohol Use History: None Reported Past Drug Use History: None Reported - Past Family History Mother Family Medical History: Liver Disease Additional Family Medical History / Comment(s): Hx Chrons and colitis. age 35 with liver problems due to ETOH use. Father Family Medical History: Hyperlipidemia, Hypertension Additional Family Medical History / Comment(s): grand father had and mi, grand mother had copd, chf,dm,bp General Exam Limitations: no limitations General appearance: alert, in no apparent distress Head exam: Present: atraumatic, normocephalic, normal inspection Eye exam: Present: normal appearance, PERRL, EOMI. Absent: scleral icterus, conjunctival injection, periorbital swelling ENT exam: Present: mucous membranes moist, TM's normal bilaterally, normal external ear exam. Absent: normal oropharynx (Dental fracture left upper no drainable abscess mild erythema tenderness over the left cheek region) Neck exam: Present: normal inspection, full ROM. Absent: tenderness, meningismus, lymphadenopathy Respiratory exam: Present: normal lung sounds bilaterally. Absent: respiratory distress, wheezes, rales, rhonchi, stridor Cardiovascular Exam: Present: regular rate, normal rhythm, normal heart sounds. Absent: systolic murmur, diastolic murmur, rubs, gallop, clicks Course Vital Signs 04/18/17 02:25 Temperature 97.1 F L Pulse Rate 101 H Respiratory 20 Rate Blood Pressure 139/90 O2 Sat by Pulse 97 Oximetry Medical Decision Making - Medical Decision Making 21-year-old female presented emergency from for dental pain. Patient has a dental fracture we treated for dental infection with penicillin. She is currently with no complications. Patient is advised take Tylenol as directed for pain relief she is to contact her dentist return for any worsening symptoms. Disposition Clinical Impression: Dental infection, Toothache Disposition: HOME SELF-CARE Condition: Stable Instructions: Toothache (ED) Additional Instructions: Please return to the Emergency Department if symptoms worsen or any other concerns. Prescriptions: Penicillin V Potassium [Pen Vee K] 500 mg PO QID #40 tablet Referrals: Benito Eckert MD [Primary Care Provider] - 1-2 days Time of Disposition: 03:06
== END 2017-04-18 03:34 | disposition home or self-care (01) ==
LOC: EC 02:13
DX: O99.613 Diseases of the digestive system complicating pregnancy, third trimester (principal); K04.7 Periapical abscess without sinus; K08.89 Other specified disorders of teeth and supporting structures; E11.9 Type 2 diabetes mellitus without complications; Z87.891 Personal history of nicotine dependence; Z79.4 Long term (current) use of insulin; Z79.899 Other long term (current) drug therapy; Z3A.32 32 weeks gestation of pregnancy
CPT/HCPCS: 99282

== ENCOUNTER → 2017-05-04 | Outpatient (CLI) | payer OTHER ==
--- NOTE | 2017-05-04 11:04 | US ---
EXAMINATION TYPE: US OB >= 14 wk fetus DATE OF EXAM: 05/04/2017 COMPARISON: US 03/17/2017 CLINICAL HISTORY: O24.313 Unspecified Pre-Existing Diabetes Mellitus. Estimated weight TECHNIQUE: Transabdominal (TA) GESTATIONAL AGE / DATING Physician Established: (34 weeks/4 days) EDC: 06/11/2017 Dates by LMP: (34 weeks/4 days) EDC: 06/11/2017 Dates by First Scan: (34 weeks/4 days) EDC: 06/11/2017 Dates by Current Scan: (36 weeks/2 days) EDC: 05/30/2017 Beta HCG (if available): Not available at this time SURVEY IUP: Single PLACENTA: Anterior PREVIA: No Previa SHAYAN: 13.0 cm Normal CERVICAL LENGTH (transabdominal: norm > 3.0cm): 4.7 cm BIOMETRY PRESENTATION: Vertex LIE: Longitudinal BPD: 8.88 cm 35 weeks / 6 days HC: 32.81 cm 37 weeks / 2 days AC: 34.25 cm 38 weeks / 1 days FL: 7.0 cm 35 weeks / 6 days ESTIMATED WEIGHT IN GRAMS: 3162 grams ESTIMATED WEIGHT IN LBS/OZ: 7 lbs. 0 oz. WEIGHT PERCENTAGE BASED ON ESTABLISHED DATES: >97% HC/AC: 0.96 Normal FL/AC: 20.45 Normal HEART RATE: 132 bpm RHYTHM: Normal IMPRESSION: Viable IUP, SHANITA 05/30/2017. EFW >97%. Hypoechoic area visualized within the placenta measuring 0.9 x 0.8 x 1.8 cm, possible placental etienne.
== END | disposition home or self-care (01) ==
LOC: RADUSWWP 08:57
PROVIDERS: ATTEND Obstetrics & Gynecology
DX: O24.313 Unspecified pre-existing diabetes mellitus in pregnancy, third trimester (principal); O43.93 Unspecified placental disorder, third trimester; Z3A.36 36 weeks gestation of pregnancy
CPT/HCPCS: 76805

== ENCOUNTER → 2017-06-01 | Outpatient (CLI) | payer OTHER ==
--- NOTE | 2017-06-01 09:06 | US ---
EXAMINATION TYPE: US OB >= 14 wk fetus DATE OF EXAM: 06/01/2017 COMPARISON: None CLINICAL HISTORY: 21-year-old female O24.313 pre-existing diabetes mellitus in Diabetes TECHNIQUE: Transabdominal (TA) FINDINGS: GESTATIONAL AGE / DATING Physician Established: (38 weeks/4 days) EDC: 06/11/17 Dates by LMP: (38 weeks/4 days) EDC: 06/11/17 Dates by First Scan: (38 weeks/4 days) EDC: 06/12/07 Dates by Current Scan: (40 weeks/3 days) EDC: 05/29/17 (1 day more than expected as compared to 05/04/2017) Beta HCG (if available): Not available at this time SURVEY IUP: Single PLACENTA: Anterior. Similar heterogeneous appearance with a 1.8 cm probable venous etienne. PREVIA: No Previa SHAYAN: 15.7 cm Normal CERVICAL LENGTH (transabdominal: norm > 3.0cm): 3.8 cm BIOMETRY PRESENTATION: Vertex LIE: Longitudinal BPD: 9.6 cm 39 weeks / 2 days HC: 35.3 cm 41 weeks / 2 days AC: 37.7 cm 41 weeks / 5 days FL: 7.7 cm 39 weeks / 3 days ESTIMATED WEIGHT IN GRAMS: 4208 grams ESTIMATED WEIGHT IN LBS/OZ: 9 lbs. 4 oz. WEIGHT PERCENTAGE BASED ON ESTABLISHED DATES: 98% (versus> 97%, on 05/04/2017) HC/AC: 0.94 Normal (lower limits of normal) FL/AC: 20% Normal HEART RATE: 134 bpm RHYTHM: Normal MATERNAL WALL MEASUREMENT: 4.9 cm from skin to anterior uterine wall (if exam limited due to body hab itus). Zigzag Topstitcher notes: Single viable IUP 40wks/3days with SHANITA of 05/29/17. Heterogeneous placenta. Techni waldo limitations due to patient's body habitus IMPRESSION: 1. Single live intrauterine with established gestational age of 38 weeks 4 days by LMP. Cur rent ultrasound biometry remains larger (40 weeks 3 days) placing the child at the 98th percentile fo r weight. 2. As compared to 05/04/2017 there has been only 1 day less growth than expected with prior percentile > 97%. Correlate for macrosomia. 3. Similar heterogeneous appearance to the placenta with probable 1.8 cm venous etienne.
== END | disposition home or self-care (01) ==
LOC: RADUSWWP 07:44
PROVIDERS: ATTEND Obstetrics & Gynecology
DX: O24.313 Unspecified pre-existing diabetes mellitus in pregnancy, third trimester (principal); Z3A.40 40 weeks gestation of pregnancy
CPT/HCPCS: 76805

== ENCOUNTER 2017-06-08 22:53 | Inpatient (IN) | payer OTHER ==
[2017-06-08] MEDS ORDERED: RX INFO: IV CONTRAST WAS GIVEN 1 EACH MISC MISCELLANE PRN (23:28)
--- NOTE | 2017-06-08 23:36 | ED ---
General Adult HPI - General Chief complaint: Shortness of Breath Stated complaint: RJ Time Seen by Provider: 06/08/17 23:11 Source: patient Mode of arrival: ambulatory Limitations: no limitations - History of Present Illness Initial comments: 21-year-old female, 5 days postop section, delivery of a full-term healthy . Patient complaining of chest pain and shortness of breath. Denies cough, denies fever or chills. She is . No complaints of abdominal pain or incisional pain. No dysuria. No nausea or vomiting. Patient has history of diabetes. No history of preeclampsia. Patient also complains of bilateral lower extremity swelling and decreasing urinary frequency. Pain is central bilateral upper chest. She has some exertional dyspnea. No history of DVT or PE. - Related Data Home Medications Medication Instructions Recorded Confirmed Albuterol Inhaler [Ventolin Hfa 2 puff INHALATION RT-QID PRN 03/16/16 06/08/17 Inhaler] Insulin Glulisine [Apidra] See Protocol SQ AC-TID 07/10/16 06/08/17 Insulin Glulisine [Apidra] 6 unit SQ AC-TID 11/26/16 06/08/17 HYDROcodone/APAP 5-325MG [[place] 1 tab PO Q6HR PRN 06/08/17 06/08/17 5-325] Ibuprofen [Motrin] 600 mg PO Q6HR PRN 06/08/17 06/08/17 Insulin Detemir [Levemir Flextouch] 30 unit SQ HS 06/08/17 06/08/17 Allergies Allergy/AdvReac Type Severity Reaction Status Date / Time No Known Allergies Allergy Verified 06/08/17 23:31 Review of Systems ROS Statement: Those systems with pertinent positive or pertinent negative responses have been documented in the HPI. ROS Other: All systems not noted in ROS Statement are negative. Past Medical History Past Medical History: Diabetes Mellitus, GERD/Reflux, Hypertension Additional Past Medical History / Comment(s): Polycystic ovarian disease, recurrent pressure ulcers bilateral feet, osteomyelitis with L great toe amputation, past L thigh abscess with cellulitis, States hx of htn, but none now. WEARS BOOT ON LEFT FOOT, AND HAS DRESSING History of Any Multi-Drug Resistant Organisms: None Reported Past Surgical History: Orthopedic Surgery Additional Past Surgical History / Comment(s): WOUND CENTER PT. lt great toe amputation, lt achilles tendon repair, removal of part of left fifth metatarsal for osteomyelitis, I&D LT FOOT(ULCER). PICC LINE Past Anesthesia/Blood Transfusion Reactions: No Reported Reaction Past Psychological History: Anxiety, Depression Smoking Status: Former smoker Past Alcohol Use History: None Reported Past Drug Use History: None Reported - Past Family History Mother Family Medical History: Liver Disease Additional Family Medical History / Comment(s): Hx Chrons and colitis. age 35 with liver problems due to ETOH use. Father Family Medical History: Hyperlipidemia, Hypertension Additional Family Medical History / Comment(s): grand father had and mi, grand mother had copd, chf,dm,bp General Exam Limitations: no limitations General appearance: alert, in no apparent distress, obese Head exam: Present: atraumatic, normocephalic Eye exam: Present: normal appearance, PERRL ENT exam: Present: normal exam, normal oropharynx Neck exam: Present: normal inspection. Absent: tenderness, meningismus Respiratory exam: Present: decreased breath sounds. Absent: respiratory distress, wheezes Cardiovascular Exam: Present: regular rate, normal rhythm GI/Abdominal exam: Present: soft. Absent: distended, tenderness Extremities exam: Present: normal inspection, normal capillary refill, pedal edema (2+) Back exam: Present: normal inspection, full ROM. Absent: tenderness Neurological exam: Present: alert, oriented X3, CN II-XII intact. Absent: motor sensory deficit Psychiatric exam: Present: normal affect, normal mood Skin exam: Present: warm, dry, intact. Absent: cyanosis, diaphoretic Course Vital Signs 06/08/17 23:00 Temperature 99.2 F Pulse Rate 92 Respiratory 22 Rate Blood Pressure 145/96 O2 Sat by Pulse 98 Oximetry EKG Findings - EKG Comments: EKG Findings:: EKG shows sinus rhythm with first-degree AV block, MO interval of the elevated 212, ventricular rate 84, QRS duration 82, QTC 451, no signs of ischemia. Medical Decision Making - Medical Decision Making 21-year-old female presenting 5 days status post with chest pain and dyspnea. Patient's also complaining of lower extremity swelling. She does have 2+ pitting edema. Lung exam is decreased bilaterally likely secondary to body habitus. Laboratory studies reveal white blood cell count of 7.6, hemoglobin 9.4. Electrolytes within normal limits. Urinalysis is negative. CT angiography is obtained for concern of pulmonary embolism given that she is 5 days . This is negative for PE, there is bilateral lower lobe patchy nodular infiltrate with bilateral pleural effusion, worse on the right. There is also adenopathy and no cardiomegaly compared to CT in 2016. Given the CT findings, patient will be admitted for echocardiogram, and pulmonology consult. - Lab Data Result diagrams: 06/08/17 23:48 06/08/17 23:48 Lab Results 06/08/17 06/08/17 06/08/17 Range/Units 23:48 23:48 23:48 WBC 7.6 (3.8-10.6) k/uL RBC 3.52 L (3.80-5.40) m/uL Hgb 9.4 L (11.4-16.0) gm/dL Hct 28.8 L (34.0-46.0) % MCV 82.0 (80.0-100.0) fL MCH 26.8 (25.0-35.0) pg MCHC 32.6 (31.0-37.0) g/dL RDW 16.0 H (11.5-15.5) % Plt Count 300 (150-450) k/uL Neutrophils % 64 % Lymphocytes % 28 % Monocytes % 6 % Eosinophils % 2 % Basophils % 0 % Neutrophils # 4.8 (1.3-7.7) k/uL Lymphocytes # 2.1 (1.0-4.8) k/uL Monocytes # 0.4 (0-1.0) k/uL Eosinophils # 0.1 (0-0.7) k/uL Basophils # 0.0 (0-0.2) k/uL Poikilocytosis Slight PT (9.0-12.0) sec INR (<1.2) APTT (22.0-30.0) sec Sodium 141 (137-145) mmol/L Potassium 4.1 (3.5-5.1) mmol/L Chloride 107 (98-107) mmol/L Carbon Dioxide 24 (22-30) mmol/L Anion Gap 10 mmol/L BUN 14 (7-17) mg/dL Creatinine 0.40 L (0.52-1.04) mg/dL Est GFR (MDRD) Af Amer >60 (>60 ml/min/1.73 sqM) Est GFR (MDRD) Non-Af >60 (>60 ml/min/1.73 sqM) Glucose 95 (74-99) mg/dL Calcium 9.4 (8.4-10.2) mg/dL Magnesium 1.8 (1.6-2.3) mg/dL Total Bilirubin 0.3 (0.2-1.3) mg/dL AST 29 (14-36) U/L ALT 29 (9-52) U/L Alkaline Phosphatase 78 (38-126) U/L Total Creatine Kinase 46 (30-135) U/L CK-MB (CK-2) 0.9 (0.0-2.4) ng/mL CK-MB (CK-2) Rel Index 2.0 Troponin I <0.012 (0.000-0.034) ng/mL Total Protein 6.4 (6.3-8.2) g/dL Albumin 3.3 L (3.5-5.0) g/dL Urine Color Urine Appearance (Clear) Urine pH (5.0-8.0) Ur Specific [place] (1.001-1.035) Urine Protein (Negative) Urine Glucose (UA) (Negative) Urine Ketones (Negative) Urine Blood (Negative) Urine Nitrite (Negative) Urine Bilirubin (Negative) Urine Urobilinogen (<2.0) mg/dL Ur Leukocyte Esterase (Negative) Urine RBC (0-5) /hpf Urine WBC (0-5) /hpf Ur Squamous Epith Cells (0-4) /hpf Urine Bacteria (None) /hpf Urine Mucus (None) /hpf 06/08/17 06/08/17 Range/Units 23:48 23:48 WBC (3.8-10.6) k/uL RBC (3.80-5.40) m/uL Hgb (11.4-16.0) gm/dL Hct (34.0-46.0) % MCV (80.0-100.0) fL MCH (25.0-35.0) pg MCHC (31.0-37.0) g/dL RDW (11.5-15.5) % Plt Count (150-450) k/uL Neutrophils % % Lymphocytes % % Monocytes % % Eosinophils % % Basophils % % Neutrophils # (1.3-7.7) k/uL Lymphocytes # (1.0-4.8) k/uL Monocytes # (0-1.0) k/uL Eosinophils # (0-0.7) k/uL Basophils # (0-0.2) k/uL Poikilocytosis PT 9.6 (9.0-12.0) sec INR 1.0 (<1.2) APTT 25.5 (22.0-30.0) sec Sodium (137-145) mmol/L Potassium (3.5-5.1) mmol/L Chloride (98-107) mmol/L Carbon Dioxide (22-30) mmol/L Anion Gap mmol/L BUN (7-17) mg/dL Creatinine (0.52-1.04) mg/dL Est GFR (MDRD) Af Amer (>60 ml/min/1.73 sqM) Est GFR (MDRD) Non-Af (>60 ml/min/1.73 sqM) Glucose (74-99) mg/dL Calcium (8.4-10.2) mg/dL Magnesium (1.6-2.3) mg/dL Total Bilirubin (0.2-1.3) mg/dL AST (14-36) U/L ALT (9-52) U/L Alkaline Phosphatase (38-126) U/L Total Creatine Kinase (30-135) U/L CK-MB (CK-2) (0.0-2.4) ng/mL CK-MB (CK-2) Rel Index Troponin I (0.000-0.034) ng/mL Total Protein (6.3-8.2) g/dL Albumin (3.5-5.0) g/dL Urine Color Yellow Urine Appearance Clear (Clear) Urine pH 6.5 (5.0-8.0) Ur Specific [place] 1.012 (1.001-1.035) Urine Protein Negative (Negative) Urine Glucose (UA) Negative (Negative) Urine Ketones Negative (Negative) Urine Blood Moderate H (Negative) Urine Nitrite Negative (Negative) Urine Bilirubin Negative (Negative) Urine Urobilinogen <2.0 (<2.0) mg/dL Ur Leukocyte Esterase Negative (Negative) Urine RBC 1 (0-5) /hpf Urine WBC 2 (0-5) /hpf Ur Squamous Epith Cells <1 (0-4) /hpf Urine Bacteria Rare H (None) /hpf Urine Mucus Rare H (None) /hpf Disposition Clinical Impression: Cardiomegaly, Bilateral pleural effusion Disposition: ADMITTED IP TO THIS HOSP Condition: Stable Referrals: Benito Eckert MD [Primary Care Provider] - 1-2 days Decision to Admit Reason: Admit from EC Decision Date: 06/09/17 Decision Time: 01:31
[2017-06-09 00:08] LABS: Basophils % (A) 0 %; Eosinophils # (A) 0.1 k/uL (0-0.7); Eosinophils % (A) 2 %; HCT 28.8 % (34.0-46.0); HGB 9.4 gm/dL (11.4-16.0); Lymphocytes # (A) 2.1 k/uL (1.0-4.8); Lymphocytes % (A) 28 %; MCH 26.8 pg (25.0-35.0); MCHC 32.6 g/dL (31.0-37.0); Mean Platelet Volume 7.1; Monocytes # (A) 0.4 k/uL (0-1.0); Monocytes % (A) 6 %; Neutrophils # (A) 4.8 k/uL (1.3-7.7); Neutrophils % (A) 64 %; Platelet Count 300 k/uL (150-450); Poikilocytosis Slight; RBC 3.52 m/uL (3.80-5.40); WBC 7.6 k/uL (3.8-10.6)
[2017-06-09 00:12] LABS: Appearance,Urine Clear (Clear); Bacteria,Urine Rare /hpf; Bilirubin,Urine Negative (Negative); Blood,Urine Moderate (Negative); Color,Urine Yellow; Glucose,Urine (UA) Negative (Negative); Ketones,Urine Negative (Negative); Leukocyte Esterase,Urine Negative (Negative); Mucus,Urine Rare /hpf; PH, Urine 6.5 (5.0-8.0); Protein,Urine Negative (Negative); RBC,Urine 1 /hpf (0-5); Specific Gravity,Urine 1.012 (1.001-1.035); Squamous Epithelial Cell,Urine <1 /hpf (0-4); Urobilinogen,Urine <2.0 mg/dL (<2.0); WBC,Urine 2 /hpf (0-5)
[2017-06-09 00:19] LABS: ALT 29 U/L (9-52); AST 29 U/L (14-36); Albumin 3.3 g/dL (3.5-5.0); Alkaline Phosphatase 78 U/L (38-126); Anion Gap 10 mmol/L; Blood Urea Nitrogen 14 mg/dL (7-17); Calcium 9.4 mg/dL (8.4-10.2); Carbon Dioxide 24 mmol/L (22-30); Chloride 107 mmol/L (98-107); Glucose 95 mg/dL (74-99); Partial Thromboplastin Time 25.5 sec (22.0-30.0); Potassium 4.1 mmol/L (3.5-5.1); Prothrombin Time 9.6 sec (9.0-12.0); Sodium 141 mmol/L (137-145); Total Bilirubin 0.3 mg/dL (0.2-1.3); Total Protein 6.4 g/dL (6.3-8.2)
[2017-06-09 00:24] LABS: Creatine Kinase 46 U/L (30-135)
[2017-06-09 00:37] LABS: Creatine Kinase MB 0.9 ng/mL (0.0-2.4); Troponin I <0.012 ng/mL (0.000-0.034)
--- NOTE | 2017-06-09 00:53 | CT ---
EXAMINATION TYPE: CT angio chest DATE OF EXAM: 06/09/2017 12:31 AM COMPARISON: 3 views HISTORY: SOB, s/p 5 days, R/O PE CT DLP: 979.60 mGycm Automated exposure control for dose reduction was used. CONTRAST: CTA scan of the thorax is performed with IV Contrast, patient injected with 100 mL of Omnipaque 350, pulmonary embolism protocol. There are 3-D post processed images.. FINDINGS: There is no evidence of a pulmonary mass. There is right pleural effusion. There is small left pleur al effusion. There is coarse reticular nodular infiltrate in the lower lobes. The heart appears enlar ged. There is no pericardial effusion. I see no filling defects in the pulmonary arteries. There is no evidence of aortic aneurysm or dissec tion. There are paratracheal and anterior mediastinal lymph nodes that measure up to 3 cm. I see no b ez destructive process. IMPRESSION: NO EVIDENCE OF PULMONARY EMBOLISM. PATCHY NODULAR INFILTRATE IN THE LOWER LOBES WITH BILATERAL PLEURA L EFFUSIONS AND LARGER ON THE RIGHT SIDE. There is mild mediastinal adenopathy. The adenopathy is increased compared to old CT scan. There is c learing of some of the interstitial infiltrates in the mid and upper lobes compared to old exam but t he pleural fluid and nodular infiltrates in the lower lobes is new or increased. There is cardiomegal y. Follow-up is recommended. The possibilities of lymphoma or complicated sarcoidosis or other inflam matory process should be considered.
[2017-06-09] MEDS ORDERED: ONDANSETRON 4 MG/2 ML VIAL IVP PRN (01:31)
[2017-06-09] MEDS ORDERED: NALOXONE 0.4 MG/ML 1 ML VIAL IV PRN (01:31)
[2017-06-09 02:29] VITALS: BMI 49.1
[2017-06-09] MEDS: ACETAMINOPHEN TAB 325 MG TAB PO PRN ×3 (03:06→23:12)
[2017-06-09] MEDS: traMADol 50 MG TAB PO PRN ×3 (05:21→18:23)
[2017-06-09 05:56] LABS: Glucose,Whole Blood 118 mg/dL (75-99)
--- NOTE | 2017-06-09 09:59 | ECHOF ---
Referral Reason:Cardiomegaly MEASUREMENTS -------- HEIGHT: 165.1 cm WEIGHT: 132.9 kg BP: 160/99 RVIDd: 3.2 cm (< 3.3) IVSd: 1.0 cm (0.6 - 1.1) LVIDd: 5.5 cm (3.9 - 5.3) LVPWd: 1.1 cm (0.6 - 1.1) IVSs: 1.4 cm LVIDs: 4.6 cm LVPWs: 1.4 cm LA Diam: 4.6 cm (2.7 - 3.8) LAESV Index (A-L): 39.02 ml/m Ao Diam: 3.2 cm (2.0 - 3.7) AV Cusp: 2.1 cm (1.5 - 2.6) LA Diam: 4.8 cm (2.7 - 3.8) MV EXCURSION: 21.475 mm (> 18.000) MV EF SLOPE: 117 mm/s (70 - 150) EPSS: 1.4 cm MV E Trav: 1.25 m/s MV DecT: 130 ms MV A Trav: 0.40 m/s MV E/A Ratio: 3.16 RAP: 5.00 mmHg RVSP: 25.62 mmHg FINDINGS -------- Sinus rhythm. This was a techncally difficult study with suboptimal views, , Lumason utilized for enhancement of im ages. The left ventricular size is normal. Overall left ventricular systolic function is low-normal with, an EF between 50 - 55 %. The right ventricle is normal in size. LA is moderately dilated 34-39 ml/m2 The right atrial size is normal. The aortic valve is trileaflet, and appears structurally normal. No aortic stenosis or regurgitation. Mild mitral regurgitation is present. Mild tricuspid regurgitation present. There is no evidence of pulmonary hypertension. The right v entricular systolic pressure, as measured by Doppler, is 25.62mmHg. There is no pulmonic regurgitation present. The aortic root size is normal. There is a trivial pericardial effusion present. CONCLUSIONS -------- 1. This was a techncally difficult study with suboptimal views, , Lumason utilized for enhancement of images. 2. The left ventricular size is normal. 3. Overall left ventricular systolic function is low-normal with, an EF between 50 - 55 %. 4. LA is moderately dilated 34-39 ml/m2 5. The aortic valve is trileaflet, and appears structurally normal. No aortic stenosis or regurgitati on. 6. Mild mitral regurgitation is present. 7. Mild tricuspid regurgitation present. 8. There is no evidence of pulmonary hypertension. 9. The right ventricular systolic pressure, as measured by Doppler, is 25.62mmHg. 10. There is no pulmonic regurgitation present. 11. The aortic root size is normal. 12. There is a trivial pericardial effusion present. CHARGEBACK ANALYST: Ananya Anderson RDCS
--- NOTE | 2017-06-09 10:03 | XR ---
EXAMINATION TYPE: XR chest 2V DATE OF EXAM: 06/09/2017 COMPARISON: 01/09/2016 HISTORY: Shortness of breath and chest pain for a couple days TECHNIQUE: Frontal and lateral views of the chest are obtained. FINDINGS: Bibasilar airspace disease in combination with cardiomegaly. Cardiomegaly appears more pro nounced on the prior exam of 2016 and could relate to pericardial effusion or technique. Trace right pleural effusion blunts the costophrenic angle. Osseous structures are intact. IMPRESSION: 1. Bibasilar airspace disease that may represent pneumonia in the appropriate clinical setting or ate lectasis. 2. There is relative enlargement of the cardiac silhouette in comparison to exam of 2016. This could represent pericardial effusion or differences in technique. Echocardiogram could be considered.
[2017-06-09] MEDS ORDERED: FUROSEMIDE 10 MG/ML 2 ML VIAL IV ONE (10:45)
--- NOTE | 2017-06-09 11:35 | P.CRDCN ---
History of Present Illness Consult date: 06/09/17 Requesting physician: Savannah Doty Consult reason: shortness of breath Chief complaint: Shortness of breath History of present illness: This is a 21-year-old female with history of hypertension, diabetes, who just delivered a healthy baby boy by section on the of this month. She presents to the hospital with symptoms fairly sudden onset shortness of breath. Patient did state she also had some associated chest pressure , today however she just complains of feeling short of breath, she denies any chest discomfort. EKG performed on arrival here showed a normal sinus rhythm with first-degree AV block. CTA of the chest was performed which did not reveal any evidence of pulmonary embolism. Patchy nodular infiltrates in the lower lobes with bilateral pleural effusions larger on the right. Chest x-ray shows bibasilar airspace disease that may represent pneumonia in the appropriate clinical setting. There is a relative enlargement of the cardiac silhouette in comparison with 2016. This could represent a pericardial effusion. Echocardiogram with Doppler study was performed which revealed an ejection fraction of 50-55%. LA is moderately dilated, no evidence of pulmonary hypertension, trivial pericardial effusion. Blood pressure 160/97, heart rate in the 90s, 98% on room air. White blood cell count 7.6, hemoglobin 9.4, platelet count 300. Sodium 141, potassium 4.1, BUN 14, creatinine 0.4. BNP level DXXIII, troponin 0.012, TSH 1.9. At the time of my examination this morning, patient was having significant discomfort in the incisional area of her . She was also complaining of feeling very short of breath while lying down, she states that when she sits up straight the breathing is somewhat improved, however she continues to be quite short of breath. Past Medical History Past Medical History: Diabetes Mellitus, GERD/Reflux, Hypertension Additional Past Medical History / Comment(s): Polycystic ovarian disease, recurrent pressure ulcers bilateral feet, osteomyelitis with L great toe amputation, past L thigh abscess with cellulitis, States hx of htn, but none now. WEARS BOOT ON LEFT FOOT, AND HAS DRESSING History of Any Multi-Drug Resistant Organisms: None Reported Past Surgical History: Orthopedic Surgery Additional Past Surgical History / Comment(s): WOUND CENTER PT. lt great toe amputation, lt achilles tendon repair, removal of part of left fifth metatarsal for osteomyelitis, I&D LT FOOT(ULCER). 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 Smoking Status: Former smoker Past Alcohol Use History: None Reported Additional Past Alcohol Use History / Comment(s): She is a smoker of less than one half pack per day since 2010. Past Drug Use History: None Reported - Past Family History Mother Family Medical History: Liver Disease Additional Family Medical History / Comment(s): Hx Chrons and colitis. age 35 with liver problems due to ETOH use. Father Family Medical History: Hyperlipidemia, Hypertension Additional Family Medical History / Comment(s): grand father had and mi, grand mother had copd, chf,dm,bp Medications and Allergies Home Medications Medication Instructions Recorded Confirmed Type Albuterol Inhaler [Ventolin Hfa 2 puff INHALATION RT-QID PRN 03/16/16 06/08/17 History Inhaler] Insulin Glulisine [Apidra] See Protocol SQ AC-TID 07/10/16 06/08/17 History Insulin Glulisine [Apidra] 6 unit SQ AC-TID 11/26/16 06/08/17 History HYDROcodone/APAP 5-325MG [[place] 1 tab PO Q6HR PRN 06/08/17 06/08/17 History 5-325] Ibuprofen [Motrin] 600 mg PO Q6HR PRN 06/08/17 06/08/17 History Insulin Detemir [Levemir Flextouch] 30 unit SQ HS 06/08/17 06/08/17 History Allergies Allergy/AdvReac Type Severity Reaction Status Date / Time No Known Allergies Allergy Verified 06/08/17 23:31 Physical Exam Vitals: Vital Signs Temp Pulse Pulse Resp BP BP Pulse Ox 06/09/17 03:13 98 F 90 16 160/97 98 06/08/17 23:00 99.2 F 92 22 145/96 98 Intake and Output 06/08/17 06/09/17 06/09/17 22:59 06:59 14:59 Intake Total 240 Balance 240 Intake: Oral 240 Other: Voiding Method Toilet # Voids 1 Weight 133.2 kg PHYSICAL EXAMINATION: HEENT: Head is atraumatic, normocephalic. Pupils equal, round. Neck is supple. There is no elevated jugular venous pressure. HEART EXAMINATION: Heart S1, S2 normal. No murmur or gallop heard. CHEST EXAMINATION: Lungs reveal diminished air entry to bilateral bases, right greater than left ABDOMEN: Soft, incision clean and dry, positive incisional discomfort. Bowel sounds are heard. No organomegaly noted. EXTREMITIES:[ 1+ peripheral pulses with trace evidence of peripheral edema , patient does have lesions on the right foot which she is receiving wound care NEUROLOGIC patient is awake, alert and oriented -3. . Results 06/08/17 23:48 06/08/17 23:48 Cardiac Enzymes 06/08/17 06/08/17 Range/Units 23:48 23:48 AST 29 (14-36) U/L CK-MB (CK-2) 0.9 (0.0-2.4) ng/mL Troponin I <0.012 (0.000-0.034) ng/mL Coagulation 06/08/17 Range/Units 23:48 PT 9.6 (9.0-12.0) sec APTT 25.5 (22.0-30.0) sec CBC 06/08/17 Range/Units 23:48 WBC 7.6 (3.8-10.6) k/uL RBC 3.52 L (3.80-5.40) m/uL Hgb 9.4 L (11.4-16.0) gm/dL Hct 28.8 L (34.0-46.0) % Plt Count 300 (150-450) k/uL Comprehensive Metabolic Panel 06/08/17 Range/Units 23:48 Sodium 141 (137-145) mmol/L Potassium 4.1 (3.5-5.1) mmol/L Chloride 107 (98-107) mmol/L Carbon Dioxide 24 (22-30) mmol/L BUN 14 (7-17) mg/dL Creatinine 0.40 L (0.52-1.04) mg/dL Glucose 95 (74-99) mg/dL Calcium 9.4 (8.4-10.2) mg/dL AST 29 (14-36) U/L ALT 29 (9-52) U/L Alkaline Phosphatase 78 (38-126) U/L Total Protein 6.4 (6.3-8.2) g/dL Albumin 3.3 L (3.5-5.0) g/dL Current Medications Generic Name Dose Route Start Last Admin Trade Name Freq PRN Reason Stop Dose Admin Acetaminophen 650 mg 06/09/17 02:36 06/09/17 08:30 Tylenol Tab PO 650 mg Q4HR PRN Administration Fever and/ or Pain Miscellaneous Information 1 each 06/08/17 23:28 06/08/17 23:56 Rx Info: Iv Contrast Was Given MISCELLANE 06/10/17 23:28 1 each DAILY PRN Administration Per Protocol Naloxone HCl 0.2 mg 06/09/17 01:31 Narcan IV Q2M PRN Opioid Reversal Ondansetron HCl 4 mg 06/09/17 01:31 Zofran IVP Q8HR PRN Nausea And Vomiting Tramadol HCl 50 mg 06/09/17 04:50 Ultram PO QID PRN Mild to Moderate Pain Intake and Output 06/08/17 06/09/17 06/09/17 22:59 06:59 14:59 Intake Total 240 Balance 240 Intake: Oral 240 Other: Voiding Method Toilet # Voids 1 Weight 133.2 kg 06/08/17 23:48 06/08/17 23:48 EKG Interpretations (text) EKG shows normal sinus rhythm with no acute changes. Assessment and Plan Plan: Assessment and plan #1 symptoms of fairly sudden onset of shortness of breath. Evidence of bilateral pleural effusions, right greater than the left. Echo reveals a normal left ventricular systolic function. BNP level 523. #2 history of hypertension during , history of hypertension previously as well. #3 diabetes #4 recurrent pressure ulcers to bilateral feet, left great toe amputation #5 nicotine dependence #6 recent section 5 days ago to healthy baby boy Plan We will give the patient one time dose of IV Lasix 20 mg because of the noted effusion and mild elevation in BNP. We will also start Lopressor 25 mg now and 3 times a day, patient is slightly tachycardic, and this will also help with her blood pressure. Await pulmonary evaluation. Further recommendations to follow. DNP note has been reviewed, I agree with a documented findings and plan of care. Patient was seen and examined.
[2017-06-09] MEDS: METOPROLOL TARTRATE 25 MG TAB PO SCH ×2 (11:50→20:53)
[2017-06-09 11:55] LABS: Glucose,Whole Blood 108 mg/dL (75-99)
--- NOTE | 2017-06-09 12:47 | P.CNPUL ---
History of Present Illness Consult date: 06/09/17 Requesting physician: Savannah Doty Reason for consult: dyspnea, chest pain Chief complaint: Chest pain and shortness of breath History of present illness: This is a very pleasant 21-year-old female patient who follows with Dr. Eckert as her primary care physician. She has a history of abuse mellitus, gastroesophageal reflux disease, hypertension. She had recently had a section with a full-term delivery of a baby boy on 06/03/2017. She was discharged from [facility] on 06/06/2017. She had been doing fairly well until yesterday she developed increasing shortness of breath and chest discomfort. She presented here to the emergency room for the same. CT angiogram ruled out pulmonary embolism. There is some patchy nodular infiltrate in the left lower lobe and bilateral pleural effusions right greater than left. There is also noted mild mediastinal adenopathy compared to a previous CAT scan. There is concern regarding possible lymphoma or consultative sarcoidosis or other inflammatory process. She is seen today in consultation on the selective care unit. She is awake and alert in no acute distress. She is still having some chest discomfort. She has a dry nonproductive cough. No chills or night sweats. Echocardiogram reveals preserved left ventricular systolic function with ejection fraction 50-55%. No evidence of pulmonary hypertension. Trivial pericardial effusion. No leukocytosis. Hemoglobin 9.4. Creatinine 0.40. He is maintaining good O2 saturations in the 90s on room air. She's been hemodynamically stable. Afebrile. Review of Systems 14 point review of system was conducted. All negative other than as mentioned in HPI. That mainly being chest discomfort and shortness of breath. Past Medical History Past Medical History: Diabetes Mellitus, GERD/Reflux, Hypertension Additional Past Medical History / Comment(s): Polycystic ovarian disease, recurrent pressure ulcers bilateral feet, osteomyelitis with L great toe amputation, past L thigh abscess with cellulitis, States hx of htn, but none now. WEARS BOOT ON LEFT FOOT, AND HAS DRESSING History of Any Multi-Drug Resistant Organisms: None Reported Past Surgical History: Orthopedic Surgery Additional Past Surgical History / Comment(s): WOUND CENTER PT. lt great toe amputation, lt achilles tendon repair, removal of part of left fifth metatarsal for osteomyelitis, I&D LT FOOT(ULCER). 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 Smoking Status: Former smoker Past Alcohol Use History: None Reported Additional Past Alcohol Use History / Comment(s): She is a smoker of less than one half pack per day since 2010. Past Drug Use History: None Reported - Past Family History Mother Family Medical History: Liver Disease Additional Family Medical History / Comment(s): Hx Chrons and colitis. age 35 with liver problems due to ETOH use. Father Family Medical History: Hyperlipidemia, Hypertension Additional Family Medical History / Comment(s): grand father had and mi, grand mother had copd, chf,dm,bp Medications and Allergies Home Medications Medication Instructions Recorded Confirmed Type Albuterol Inhaler [Ventolin Hfa 2 puff INHALATION RT-QID PRN 03/16/16 06/08/17 History Inhaler] Insulin Glulisine [Apidra] See Protocol SQ AC-TID 07/10/16 06/08/17 History Insulin Glulisine [Apidra] 6 unit SQ AC-TID 11/26/16 06/08/17 History HYDROcodone/APAP 5-325MG [[place] 1 tab PO Q6HR PRN 06/08/17 06/08/17 History 5-325] Ibuprofen [Motrin] 600 mg PO Q6HR PRN 06/08/17 06/08/17 History Insulin Detemir [Levemir Flextouch] 30 unit SQ HS 06/08/17 06/08/17 History Allergies Allergy/AdvReac Type Severity Reaction Status Date / Time No Known Allergies Allergy Verified 06/08/17 23:31 Physical Exam Vitals: Vital Signs Temp Pulse Pulse Resp BP BP Pulse Ox 06/09/17 08:00 97.1 F L 92 20 130/77 93 L 06/09/17 03:13 98 F 90 16 160/97 98 06/08/17 23:00 99.2 F 92 22 145/96 98 Intake and Output 06/08/17 06/09/17 06/09/17 22:59 06:59 14:59 Intake Total 240 Balance 240 Intake: Oral 240 Other: Voiding Method Toilet # Voids 1 Weight 133.2 kg GENERAL EXAM: Alert, active, comfortable in no apparent distress. HEAD: Normocephalic. EYES: Normal reaction of pupils, equal size. NOSE: Clear with pink turbinates. THROAT: No erythema or exudates. NECK: No masses, no JVD. CHEST: No chest wall deformity. LUNGS: Equal air entry with crackles in the posterior bases more so on the right. CVS: S1 and S2 normal with no audible murmur, regular rhythm. ABDOMEN: Abdominal incision clean dry well approximated. No hepatosplenomegaly , normal bowel sounds, no guarding or rigidity. SPINE: No scoliosis or deformity SKIN: No rashes CENTRAL NERVOUS SYSTEM: No focal deficits, tone is normal in all 4 extremities. EXTREMITIES: There is no peripheral edema. No clubbing, no cyanosis. Peripheral pulses are intact. Results - Laboratory Findings CBC and BMP: 06/08/17 23:48 06/08/17 23:48 PT/INR, D-dimer PT 9.6 sec (9.0-12.0) 06/08/17 23:48 INR 1.0 (<1.2) 06/08/17 23:48 Abnormal lab findings: Abnormal Labs 06/08/17 06/08/17 06/08/17 23:48 23:48 23:48 RBC 3.52 L Hgb 9.4 L Hct 28.8 L RDW 16.0 H Creatinine 0.40 L POC Glucose (mg/dL) Albumin 3.3 L Urine Blood Moderate H Urine Bacteria Rare H Urine Mucus Rare H 06/09/17 06/09/17 05:54 11:49 RBC Hgb Hct RDW Creatinine POC Glucose (mg/dL) 118 H 108 H Albumin Urine Blood Urine Bacteria Urine Mucus - Diagnostic Findings Chest x-ray: image reviewed CT scan - chest: image reviewed Assessment and Plan Assessment: Impression: #1 Chest discomfort and shortness of breath secondary to fluid volume overload suspect cardiomyopathy with cardiomegaly and bilateral pleural effusions right greater than left. #2 delivery on 06/03/2017. #3 Diabetes mellitus, #4 Hypertension. #6 Gastroesophageal reflux disease. Plan: The patient was seen and evaluated by Dr. Murray. We do feel this could be some component of a cardiomyopathy. She'll be getting Lasix. No need for any pulmonary medications at this time. Will increase her activity as tolerated. We will continue to follow make further recommendations based on her clinical status. I, the cosigning physician, performed a history & physical examination of the patient. Lungs sounds echo is in the bilateral posterior bases more so on the right. Maintaining good O2 saturations in the 90s on room air. I discussed the assessment and plan of care with my nurse practitioner, Naya Wolf. I attest to the above note as dictated by her. Time with Patient: Greater than 30
[2017-06-09 13:00] LABS: Hemoglobin A1C 5.6 % (4.0-6.0)
[2017-06-09] MEDS ORDERED: ALBUTEROL NEBULIZED 2.5 MG/3 ML INHALATION PRN (14:06)
[2017-06-09 17:01] LABS: Glucose,Whole Blood 103 mg/dL (75-99)
[2017-06-09] MEDS: FUROSEMIDE 10 MG/ML 4 ML VIAL IV SCH ×2 (17:23→23:03)
[2017-06-09] MEDS: INSULIN ASPART 100 UNIT/ML 1 ML 10 ML VIAL SQ SCH ×2 (17:23→21:41)
--- NOTE | 2017-06-09 17:36 | HP ---
HISTORY AND PHYSICAL DATE OF SERVICE: 06/09/2017 CHIEF COMPLAINT: Shortness of breath. HISTORY OF PRESENT ILLNESS: This 21-year-old woman who is 5 days postop had a full-term healthy infant. The patient is complaining of some chest pain and shortness of breath. No cough. The patient came to [facility] and found to have some cardiomegaly and evidence of some fluid overload. The patient also had some bilateral pleural effusion. A 2D echo showed normal ejection fraction. The LV was noted as 5.5 cm in diastole and LA was 4.6. The patient admitted for further evaluation. Cardiology and Pulmonology evaluation in progress at this time. Mild mitral regurgitation, mild tricuspid as noted in the 2D echo. There is no history of fever, rigors. No headache, loss of consciousness, seizures at this time. PAST MEDICAL HISTORY: History of recent section, diabetes and GERD, hypertension, history history of polycystic ovarian syndrome, history of pressure ulcers of both bilateral feet. MEDICATIONS: Prior to admission include: 1. Levemir 30 units subcu q.h.s. 2. Motrin 600 mg q.6h p.r.n. 3. [place] 5 mg every 6 p.r.n. 4. Apidra 6 mg a.c. t.i.d. 5. Apidra a.c. t.i.d. 6. Ventolin HFA 2 puffs q.i.d. p.r.n. ALLERGIES: None. FAMILY HISTORY: History of liver disease, Crohn disease and colitis in the family. SOCIAL HISTORY: History of smoking. No history of current smoking or alcohol intake. REVIEW OF SYSTEMS: ENT: No diminished hearing or vision. CARDIOVASCULAR: As mentioned RESPIRATORY: As mentioned. GI: No nausea. : No dysuria. NERVOUS SYSTEM: No numbness, weakness. ALLERGY/IMMUNOLOGY: No asthma. MUSCULOSKELETAL: As mentioned. HEMATOLOGY: No history of anemia. ENDOCRINE: As mentioned. CONSTITUTIONAL: As mentioned. DERMATOLOGY: Negative. RHEUMATOLOGY: Negative. PSYCHIATRY: As mentioned earlier. PHYSICAL EXAM: Alert and oriented x3. Pulse is 92, blood pressure 130/77, respirations 20, temperature 97.2, pulse ox 93% on room air. HEENT: Conjunctivae normal. NECK: Obese. CARDIOVASCULAR: S1, S2 muffled, ejection systolic murmur. RESPIRATORY: Breath sounds diminished in the bases. A few scattered rhonchi. No crackles. ABDOMEN: Soft, obese, nontender. LEGS: Minimal bilateral leg edema. NERVOUS SYSTEM: Higher functions as mentioned earlier, moves all 4 limbs, no focal motor deficits. LYMPHATICS: No lymphadenopathy in the neck, axillae, groin. SKIN: No ulcers, rash, bleeding. LAB STUDIES: WBC 7.2, hemoglobin 9.4, otherwise albumin 3.3, and UA noted. The NT proBNP is 523. 2D echo noted. CTA noted otherwise some interstitial shadowing. Chest x-ray showed bibasilar airspace disease or possibly fluid overload and cardiomegaly. ASSESSMENT: 1. Possibly congestive heart failure acute exacerbation with acute on chronic diastolic dysfunction, rule out peripartum cardiomyopathy. 2. Rule out fluid overload. 3. History of recent section. 4. Gastroesophageal reflux disease. 5. Diabetes mellitus type 2. 6. Hypertension. 7. Bilateral pleural effusion. 8. History of polycystic ovarian syndrome. 9. Acute pressure ulcers of the feet. 10.History of osteomyelitis. 11.History of degenerative joint disease. 12.History of anxiety, depression. 13.Remote history of nicotine dependence. RECOMMENDATIONS AND DISCUSSION: This 21-year-old woman who presented with multiple complex medical issues, will monitor the patient closely. Continue the current management and treatment. Follow closely with Cardiology and Pulmonology. I would recommend intermittent diuretics. Monitor fluid and electrolytes closely. Otherwise I would recommend fluid restriction 1200 mL per 24 hours and repeat labs. I would also recommend to add potassium to the current regimen also. Follow the patient closely with you. Otherwise, guarded prognosis. Further recommendations to follow. MMODL / IJN: [id number] /
[2017-06-09] MEDS: POTASSIUM CHLORIDE ER 20 MEQ TAB.ER PO SCH (18:24)
[2017-06-09 21:04] LABS: Glucose,Whole Blood 115 mg/dL (75-99)
[2017-06-10 05:44] LABS: Glucose,Whole Blood 145 mg/dL (75-99)
[2017-06-10] MEDS: INSULIN ASPART 100 UNIT/ML 1 ML 10 ML VIAL SQ SCH ×3 (06:03→15:22)
[2017-06-10 06:19] LABS: ALT 32 U/L (9-52); AST 20 U/L (14-36); Albumin 3.4 g/dL (3.5-5.0); Alkaline Phosphatase 74 U/L (38-126); Anion Gap 11 mmol/L; Blood Urea Nitrogen 18 mg/dL (7-17); Calcium 9.4 mg/dL (8.4-10.2); Carbon Dioxide 27 mmol/L (22-30); Chloride 99 mmol/L (98-107); Glucose 133 mg/dL (74-99); Potassium 3.9 mmol/L (3.5-5.1); Sodium 137 mmol/L (137-145); Total Bilirubin 0.3 mg/dL (0.2-1.3); Total Protein 6.3 g/dL (6.3-8.2)
[2017-06-10 06:55] LABS: Basophils % (A) 1 %; Eosinophils # (A) 0.1 k/uL (0-0.7); Eosinophils % (A) 2 %; HCT 32.2 % (34.0-46.0); HGB 10.4 gm/dL (11.4-16.0); Hypochromasia Slight; Lymphocytes # (A) 2.6 k/uL (1.0-4.8); Lymphocytes % (A) 33 %; MCHC 32.2 g/dL (31.0-37.0); MCV 83.9 fL (80.0-100.0); Mean Platelet Volume 6.6; Monocytes # (A) 0.5 k/uL (0-1.0); Monocytes % (A) 6 %; Neutrophils # (A) 4.5 k/uL (1.3-7.7); Neutrophils % (A) 57 %; Platelet Count 344 k/uL (150-450); Poikilocytosis Slight; RBC 3.84 m/uL (3.80-5.40); RDW 15.6 % (11.5-15.5); WBC 7.9 k/uL (3.8-10.6)
[2017-06-10] MEDS: traMADol 50 MG TAB PO PRN (08:38)
[2017-06-10 08:40] VITALS: RESP 18
[2017-06-10] MEDS: FUROSEMIDE 10 MG/ML 4 ML VIAL IV SCH (08:43)
[2017-06-10] MEDS: METOPROLOL TARTRATE 25 MG TAB PO SCH (08:43)
[2017-06-10] MEDS: POTASSIUM CHLORIDE ER 20 MEQ TAB.ER PO SCH (08:43)
[2017-06-10] MEDS ORDERED: POTASSIUM CHLORIDE ER 10 MEQ TAB.ER.PRT PO SCH (09:45)
[2017-06-10 11:53] LABS: Glucose,Whole Blood 112 mg/dL (75-99)
[2017-06-10 12:06] VITALS: BP 125/82; PULSE 85; TEMP 97.3
--- NOTE | 2017-06-10 12:25 | P.PN ---
Subjective Progress Note Date: 06/10/17 Principal diagnosis: Chest pain and shortness of breath. Pulmonary embolism ruled out. This is a very pleasant 21-year-old female patient who follows with Dr. Eckert as her primary care physician. She has a history of abuse mellitus, gastroesophageal reflux disease, hypertension. She had recently had a section with a full-term delivery of a baby boy on 06/03/2017. She was discharged from [facility] on 06/06/2017. She had been doing fairly well until yesterday she developed increasing shortness of breath and chest discomfort. She presented here to the emergency room for the same. CT angiogram ruled out pulmonary embolism. There is some patchy nodular infiltrate in the left lower lobe and bilateral pleural effusions right greater than left. There is also noted mild mediastinal adenopathy compared to a previous CAT scan. There is concern regarding possible lymphoma or consultative sarcoidosis or other inflammatory process. She is seen today in consultation on the selective care unit. She is awake and alert in no acute distress. She is still having some chest discomfort. She has a dry nonproductive cough. No chills or night sweats. Echocardiogram reveals preserved left ventricular systolic function with ejection fraction 50-55%. No evidence of pulmonary hypertension. Trivial pericardial effusion. No leukocytosis. Hemoglobin 9.4. Creatinine 0.40. He is maintaining good O2 saturations in the 90s on room air. She's been hemodynamically stable. Afebrile. The patient is seen again today 06/10/2017 in follow-up on the selective care unit. She is awake and alert in no acute distress. She denies any worsening shortness of breath, cough or congestion. No chest pain, palpitations lightheadedness or dizziness. She is maintaining good O2 saturations in the upper 90s on room air. She is afebrile. Hemodynamically stable. White count 7.9. Hemoglobin 10.4. Objective - Vital Signs Vital signs: Vital Signs Temp 97.3 F L 06/10/17 12:00 Pulse 85 06/10/17 12:00 Resp 18 06/10/17 12:00 BP 125/82 06/10/17 12:00 Pulse Ox 96 06/10/17 12:00 Intake & Output 06/09/17 06/10/17 06/10/17 18:59 06:59 18:59 Intake Total 960 360 Output Total 1 400 Balance 960 -1 -40 Weight 126.6 kg Intake: Oral 960 360 Output: Urine 1 400 Other: Voiding Method Toilet Toilet # Voids 2 2 1 - Exam GENERAL EXAM: Alert, active, comfortable in no apparent distress. HEAD: Normocephalic. EYES: Normal reaction of pupils, equal size. NOSE: Clear with pink turbinates. THROAT: No erythema or exudates. NECK: No masses, no JVD. CHEST: No chest wall deformity. LUNGS: Equal air entry with crackles in the posterior bases more so on the right. CVS: S1 and S2 normal with no audible murmur, regular rhythm. ABDOMEN: Abdominal incision clean dry well approximated. No hepatosplenomegaly , normal bowel sounds, no guarding or rigidity. SPINE: No scoliosis or deformity SKIN: No rashes CENTRAL NERVOUS SYSTEM: No focal deficits, tone is normal in all 4 extremities. EXTREMITIES: There is no peripheral edema. No clubbing, no cyanosis. Peripheral pulses are intact. - Labs CBC & Chem 7: 06/10/17 05:37 06/10/17 05:37 Labs: Abnormal Lab Results - Last 24 Hours (Table) 06/09/17 06/09/17 06/10/17 Range/Units 16:54 21:02 05:37 Hgb (11.4-16.0) gm/dL Hct (34.0-46.0) % RDW (11.5-15.5) % BUN 18 H (7-17) mg/dL Glucose 133 H (74-99) mg/dL POC Glucose (mg/dL) 103 H 115 H (75-99) mg/dL Magnesium 1.4 L (1.6-2.3) mg/dL Albumin 3.4 L (3.5-5.0) g/dL 06/10/17 06/10/17 06/10/17 Range/Units 05:37 05:42 11:47 Hgb 10.4 L (11.4-16.0) gm/dL Hct 32.2 L (34.0-46.0) % RDW 15.6 H (11.5-15.5) % BUN (7-17) mg/dL Glucose (74-99) mg/dL POC Glucose (mg/dL) 145 H 112 H (75-99) mg/dL Magnesium (1.6-2.3) mg/dL Albumin (3.5-5.0) g/dL Assessment and Plan Assessment: Impression: #1 Chest discomfort and shortness of breath secondary to fluid volume overload suspect cardiomyopathy with cardiomegaly and bilateral pleural effusions right greater than left. #2 delivery on 06/03/2017. #3 Diabetes mellitus, #4 Hypertension. #5 Gastroesophageal reflux disease. #6 Mild mediastinal adenopathy. Lymphoma, sarcoidosis or other inflammatory processes within the differential. To be followed in the outpatient setting. Plan: The patient was seen and evaluated by Dr. Murray. She continues to diurese well. She is stable from the pulmonary standpoint he could be discharged home once cleared by cardiology. She should follow-up in our office based on her computed tomography scan findings and possible sarcoidosis. We'll repeat a CAT scan in 3 months. We'll continue to follow. I, the cosigning physician, performed a history & physical examination of the patient. Lungs sounds crackles in the bilateral posterior bases more so on the right. Maintaining good O2 saturations in the 90s on room air. I discussed the assessment and plan of care with my nurse practitioner, Naya Wolf. I attest to the above note as dictated by her.
--- NOTE | 2017-06-10 12:34 | P.PN ---
Subjective Progress Note Date: 06/10/17 Principal diagnosis: Shortness of breath This is a 21-year-old female with history of hypertension, diabetes, who just delivered a healthy baby boy by section on the of this month. She presents to the hospital with symptoms fairly sudden onset shortness of breath. Patient did state she also had some associated chest pressure , today however she just complains of feeling short of breath, she denies any chest discomfort. EKG performed on arrival here showed a normal sinus rhythm with first-degree AV block. CTA of the chest was performed which did not reveal any evidence of pulmonary embolism. Patchy nodular infiltrates in the lower lobes with bilateral pleural effusions larger on the right. Chest x-ray shows bibasilar airspace disease that may represent pneumonia in the appropriate clinical setting. There is a relative enlargement of the cardiac silhouette in comparison with 2016. This could represent a pericardial effusion. Echocardiogram with Doppler study was performed which revealed an ejection fraction of 50-55%. LA is moderately dilated, no evidence of pulmonary hypertension, trivial pericardial effusion. Blood pressure 160/97, heart rate in the 90s, 98% on room air. White blood cell count 7.6, hemoglobin 9.4, platelet count 300. Sodium 141, potassium 4.1, BUN 14, creatinine 0.4. BNP level DXXIII, troponin 0.012, TSH 1.9. At the time of my examination this morning, patient was having significant discomfort in the incisional area of her . She was also complaining of feeling very short of breath while lying down, she states that when she sits up straight the breathing is somewhat improved, however she continues to be quite short of breath. 06/10/2017 Patient was seen and examined this morning, breathing is much improved today. She was initiated on IV Lasix yesterday, diuresed well. Weight is down. White blood cell count 7.9, hemoglobin 10.4, platelet count 344. Sodium 137, potassium 3.9, BUN 18, creatinine 0.6. Magnesium level I.4. We will discontinue the IV Lasix today and keep the patient on 40 mg of Lasix daily. We will also decrease metoprolol to 25 mg daily and add 10 mEq of potassium daily to her medication regime. Objective - Vital Signs Vital signs: Vital Signs Temp 97.3 F L 03/01/18 12:00 Pulse 85 06/10/17 12:00 Resp 18 06/10/17 12:00 BP 125/82 06/10/17 12:00 Pulse Ox 96 06/10/17 12:00 Intake & Output 06/09/17 06/10/17 06/10/17 18:59 06:59 18:59 Intake Total 960 360 Output Total 1 400 Balance 960 -1 -40 Weight 126.6 kg Intake: Oral 960 360 Output: Urine 1 400 Other: Voiding Method Toilet Toilet # Voids 2 2 1 - Exam PHYSICAL EXAMINATION: HEENT: Head is atraumatic, normocephalic. Pupils equal, round. Neck is supple. There is no elevated jugular venous pressure. HEART EXAMINATION: Heart S1, S2 normal. No murmur or gallop heard. CHEST EXAMINATION: Lungs clear with fine crackles to bilateral bases. ABDOMEN: Soft, incision clean and dry, positive incisional discomfort. Bowel sounds are heard. No organomegaly noted. EXTREMITIES:[ 1+ peripheral pulses with trace evidence of peripheral edema , patient does have lesions on the right foot which she is receiving wound care NEUROLOGIC patient is awake, alert and oriented -3. - Labs CBC & Chem 7: 06/10/17 05:37 06/10/17 05:37 Labs: Abnormal Lab Results - Last 24 Hours (Table) 06/09/17 06/09/17 06/10/17 Range/Units 16:54 21:02 05:37 Hgb (11.4-16.0) gm/dL Hct (34.0-46.0) % RDW (11.5-15.5) % BUN 18 H (7-17) mg/dL Glucose 133 H (74-99) mg/dL POC Glucose (mg/dL) 103 H 115 H (75-99) mg/dL Magnesium 1.4 L (1.6-2.3) mg/dL Albumin 3.4 L (3.5-5.0) g/dL 06/10/17 06/10/17 06/10/17 Range/Units 05:37 05:42 11:47 Hgb 10.4 L (11.4-16.0) gm/dL Hct 32.2 L (34.0-46.0) % RDW 15.6 H (11.5-15.5) % BUN (7-17) mg/dL Glucose (74-99) mg/dL POC Glucose (mg/dL) 145 H 112 H (75-99) mg/dL Magnesium (1.6-2.3) mg/dL Albumin (3.5-5.0) g/dL Assessment and Plan Plan: Assessment and plan #1 symptoms of fairly sudden onset of shortness of breath. Evidence of bilateral pleural effusions, right greater than the left. Echo reveals a normal left ventricular systolic function. BNP level 523. #2 history of hypertension during , history of hypertension previously as well. #3 diabetes #4 recurrent pressure ulcers to bilateral feet, left great toe amputation #5 nicotine dependence #6 recent section 5 days ago to healthy baby boy Plan We will discontinue the IV Lasix and start the patient on oral diuretics today. Decrease Lopressor to 25 mg daily, 10 mEq potassium daily to her medication regime. She may be able to be discharged home from cardiology's perspective and we will follow her up in the office post discharge. DNP note has been reviewed, I agree with a documented findings and plan of care. Patient was seen and examined.
--- NOTE | 2017-06-11 06:28 | DS ---
DISCHARGE SUMMARY DATE OF SERVICE: 06/10/2017. LABORATORY STUDIES: 1. Shortness of breath and congestive heart failure acute exacerbation acute on chronic diastolic dysfunction, possibly peripartum cardiomyopathy, mild. 2. History of recent section. 3. Gastroesophageal reflux disease. 4. Diabetes type 2. 5. Hypertension. 6. Bilateral pleural effusion. 7. History of polycystic ovaries. 8. Acute pressure ulcers of the feet. 9. History of osteomyelitis. 10.History of degenerative joint disease. 11.Anxiety/depression. 12.Remote history of nicotine dependence. DISCHARGE DISPOSITION: The patient is being discharged in stable condition with guarded prognosis. HISTORY OF PRESENT ILLNESS: This patient with five days post op was admitted with shortness of breath. The patient had features of CHF. Patient treated empirically. Patient improved significantly. 2D echo was noted. Cardiology and pulmonology saw the patient. Patient improved significantly. PHYSICAL EXAMINATION: On exam, vitals are stable. Cardiovascular: S1, S2. Abdomen is soft. Central nervous system: No focal deficits. The patient being discharged in stable condition with guarded prognosis with the following advice and medications: DISCHARGE ADVICE: 1. Discharge diet is cardiac. 2. Activity limited until followup. 3. Follow up with Dr. Eckert in 2 to 3 days. 4. Follow up with Cardiology and pulmonology as recommended. MEDICATIONS: 1. Albuterol 2 puffs q.i.d. p.r.n. 2. Lasix 40 mg p.o. daily. 3. [place] 7.5 q.6h p.r.n. 4. Levemir 30 units subcu q.h.s. 5. Apidra t.i.d. 6 units t.i.d. 6. Lopressor 25 mg p.o. daily. 7. Iron sulfate daily. 8. KCl 10 mEq p.o. 9. Please note, please hold Apidra and insulin and check Accu-Cheks a.c. and q.h.s. and follow with the primary physician. MMODL / IJN: [id number] /
[2017-06-11] MEDS ORDERED: FUROSEMIDE 40 MG TAB PO SCH (09:00)
[2017-06-11] MEDS ORDERED: METOPROLOL TARTRATE 25 MG TAB PO SCH (09:00)
== END 2017-06-10 16:00 | disposition home or self-care (01) | DRG 776 ==
LOC: EC 22:53 → 6SEL 06-09 01:31
PROVIDERS: ADMIT Hospitalist; ATTEND Hospitalist
DX: O90.3 Peripartum cardiomyopathy (principal); I50.33 Acute on chronic diastolic (congestive) heart failure; E11.621 Type 2 diabetes mellitus with foot ulcer; I08.1 Rheumatic disorders of both mitral and tricuspid valves; I11.0 Hypertensive heart disease with heart failure; I44.0 Atrioventricular block, first degree; K21.9 Gastro-esophageal reflux disease without esophagitis; R59.0 Localized enlarged lymph nodes; F17.210 Nicotine dependence, cigarettes, uncomplicated; M19.91 Primary osteoarthritis, unspecified site; E28.2 Polycystic ovarian syndrome; Z79.899 Other long term (current) drug therapy; Z89.412 Acquired absence of left great toe; Z86.59 Personal history of other mental and behavioral disorders; Z82.49 Family history of ischemic heart disease and other diseases of the circulatory system
CPT/HCPCS: 36415; 71046; 71275; 80053; 81001; 82550; 82553; 83036; 83735; 83880; 84443; 84484; 85025; 85610; 85730; 93005; 93306; 99285

== ENCOUNTER 2018-10-11 17:20 | Emergency (ER) | payer OTHER ==
[2018-10-11 17:29] VITALS: BP 141/84; PULSE 68; RESP 18; TEMP 98.6
--- NOTE | 2018-10-11 18:07 | XR ---
EXAMINATION TYPE: XR elbow complete RT DATE OF EXAM: 10/11/2018 COMPARISON: NONE HISTORY: Elbow pain TECHNIQUE: 3 views FINDINGS: I see no fracture nor dislocation. There is no sign of joint effusion. Joint spaces are nor mal. IMPRESSION: Negative right elbow exam.
--- NOTE | 2018-10-11 18:09 | XR ---
EXAMINATION TYPE: XR hand complete bilateral DATE OF EXAM: 10/11/2018 COMPARISON: NONE HISTORY: Hand pain. Fall. TECHNIQUE: 3 views each hand FINDINGS: There is soft tissue swelling of the left ring finger. There is a 6 mm intra-articular chip fracture of the posterior base of the middle phalanx of the left ring finger. There is no dislocatio n. There is mild soft tissue swelling on the dorsum of the left hand. Right hand shows no fracture nor dislocation. There are no erosions. There is some soft tissue swelli ng on the dorsum of the right hand. There is no subluxation. IMPRESSION: No evidence of inflammatory arthritis. Acute fracture of the base of the middle phalanx of the left ring finger with soft tissue swelling.
--- NOTE | 2018-10-11 18:15 | ED ---
Upper Extremity HPI - General Chief Complaint: Extremity Injury, Upper Stated Complaint: finger/arm injury Time Seen by Provider: 10/11/18 17:30 Source: patient Mode of arrival: ambulatory - History of Present Illness Initial Comments: 23-year-old female presenting today for chief complaint of bilateral hand pain and right elbow pain times one day. Patient states she tripped and fell in her bedroom falling forward into a dresser. She states she extended her hands bilaterally. She states she jammed her left index finger. Patient states she has been able to range all fingers of the hands bilaterally however has had bruising over the right hand as well as the digits of the left hand. Patient also states she feels as though she jammed her right elbow. Patient states it is painful and feels as though his clicking with range of motion. Patient denies any significant soft tissue swelling of the right elbow. Patient denies hitting her head or loss of consciousness. Patient denies injury to her neck or back. Patient denies abdominal injury. Remaining review systems negative upon arrival patient is no other complaints. Patient does describe the pain of the right elbow sharp shooting increase his range of motion without radiation. She states she is similar pain at the right elbow. States resting decreases the pain. Patient states ibuprofen has not been helping pain. Denies . - Related Data Home Medications Medication Instructions Recorded Confirmed Albuterol Inhaler [Ventolin Hfa 2 puff INHALATION RT-QID PRN 03/16/16 06/08/17 Inhaler] HYDROcodone/APAP 5-325MG [[place] 1 tab PO Q6HR PRN 06/08/17 06/08/17 5-325] Ibuprofen [Motrin] 600 mg PO Q6HR PRN 06/08/17 06/08/17 Previous Rx's Medication Instructions Recorded Furosemide [Lasix] 40 mg PO DAILY #14 tab 06/10/17 Metoprolol Tartrate [Lopressor] 25 mg PO DAILY #30 tab 06/10/17 Pnv No.95/Ferrous Fum/Folic AC 1 each PO DAILY #30 tablet 06/10/17 [ Multivitamin Tablet] Potassium Chloride ER [K-Dur 10] 10 meq PO DAILY #14 tab.er.prt 06/10/17 Allergies Allergy/AdvReac Type Severity Reaction Status Date / Time No Known Allergies Allergy Verified 10/11/18 17:29 Review of Systems ROS Statement: Those systems with pertinent positive or pertinent negative responses have been documented in the HPI. ROS Other: All systems not noted in ROS Statement are negative. Past Medical History Past Medical History: Diabetes Mellitus, GERD/Reflux, Hypertension Additional Past Medical History / Comment(s): Polycystic ovarian disease, recurrent pressure ulcers bilateral feet, osteomyelitis with L great toe amputation, past L thigh abscess with cellulitis, States hx of htn, but none now. WEARS BOOT ON LEFT FOOT, AND HAS DRESSING History of Any Multi-Drug Resistant Organisms: None Reported Past Surgical History: Section, Orthopedic Surgery Additional Past Surgical History / Comment(s): WOUND CENTER PT. lt great toe amputation, lt achilles tendon repair, removal of part of left fifth metatarsal for osteomyelitis, I&D LT FOOT(ULCER). PICC LINE Past Anesthesia/Blood Transfusion Reactions: No Reported Reaction Past Psychological History: Anxiety, Depression Smoking Status: Current every day smoker Past Alcohol Use History: None Reported Past Drug Use History: None Reported - Past Family History Mother Family Medical History: Liver Disease Additional Family Medical History / Comment(s): Hx Chrons and colitis. age 35 with liver problems due to ETOH use. Father Family Medical History: Hyperlipidemia, Hypertension Additional Family Medical History / Comment(s): grand father had and mi, grand mother had copd, chf,dm,bp General Exam - General Exam Comments Initial Comments: General: The patient is awake and alert, in no distress, and does not appear acutely ill. Eye: Pupils are equal, round and reactive to light, extra-ocular movements are intact. No nystagmus. There is normal conjunctiva bilaterally. No signs of icterus. Ears, nose, mouth and throat: There are moist mucous membranes and no oral lesions. Neck: The neck is supple, there is no tenderness or JVD. Cardiovascular: There is a regular rate and rhythm. No murmur, rub or gallop is appreciated. Respiratory: Lungs are clear to auscultation, respirations are non-labored, breath sounds are equal. No wheezes, stridor, rales, or rhonchi. Musculoskeletal: Upon inspection of the hands bilaterally patient has bruising over the dorsal aspect of the right hand near the base of digits 34 and 5. Patient has no anatomical snuffbox tenderness of the wrist bilaterally. No pain to palpation of the carpals. Patient does have tenderness to palpation of digits 2 and 4 of the left hand. Patient is able to range at the elbows bilaterally. However complaints of discomfort with range of motion of the right elbow. Normal ROM at the MTP DIP MTP joints. I digits of the hands bilaterally. Strength 5/5. Sensation intact both proximal and distal to injury site. Radial pulses equal bilaterally 2+. Neurological: A&O x 3. CN II-XII intact, There are no obvious motor or sensory deficits. Coordination appears grossly intact. Speech is normal. Skin: Skin is warm and dry and no rashes or lesions are noted. Psychiatric: Cooperative, appropriate mood & affect, normal judgment. Course Vital Signs 10/11/18 10/11/18 17:27 18:31 Temperature 98.6 F 98.6 F Pulse Rate 68 68 Respiratory 18 18 Rate Blood Pressure 141/84 141/84 O2 Sat by Pulse 99 99 Oximetry Medical Decision Making - Medical Decision Making Appearing 23-year-old female presenting for chief complaint of right elbow pain bilateral hand pain. There is bruising of digits 2 and fourth left hand and bruising over the MTP area of digits 2 through 5 on the right hand. Patient has full range of motion without limitation are fixed positioning. Ulnar median and radial nerves appear intact patient compartments are compressible. The patient is able to fully range the right elbow. Without limitation specific evidence of trauma no soft tissue swelling or bruising over the elbow. Patient is neurovascularly intact. Imaging studies of the right hand and right elbow revealing no acute osseous injury. Imaging stated the left hand revealed a left ring finger middle phalanx chip fracture. I agree with the impression. I did review imaging studies personally. Patient is placed in finger splint. Patient is given Rice instructions as well as instruction to follow-up with orthopedic surgery. Patient will be discharged with primary care follow-up in 1-2 days. Return parameters were discussed at length. Patient was discharged. Will after discussed the case by attending provider Dr. Estrada Disposition Clinical Impression: Elbow pain, Bilateral hand pain, History of fall, Fracture of phalanx of left ring finger Disposition: HOME SELF-CARE Condition: Good Instructions (If sedation given, give patient instructions): Finger Fracture (ED), R.I.C.E. Treatment (ED) Additional Instructions: Please use medication as discussed. Please follow-up with family doctor in the next 2 days, if symptoms persist >1 week please follow-up with orthopedic surgery as discussed. Please return to emergency room if the symptoms increase or worsen or for any other concerns. Is patient prescribed a controlled substance at d/c from ED?: No Referrals: Benito Eckert MD [Primary Care Provider] - 1-2 days Vito Molina MD [STAFF PHYSICIAN] - 1-2 days Time of Disposition: 18:14
[2018-10-11] MEDS ORDERED: Acetaminophen-Codeine 300-30mg TAB PO STA (18:18)
== END 2018-10-11 18:31 | disposition home or self-care (01) ==
LOC: EC 17:20
DX: S62.625A Displaced fracture of middle phalanx of left ring finger, initial encounter for closed fracture (principal); S60.022A Contusion of left index finger without damage to nail, initial encounter; S60.021A Contusion of right index finger without damage to nail, initial encounter; S60.031A Contusion of right middle finger without damage to nail, initial encounter; S60.041A Contusion of right ring finger without damage to nail, initial encounter; S60.051A Contusion of right little finger without damage to nail, initial encounter; M25.521 Pain in right elbow; F17.200 Nicotine dependence, unspecified, uncomplicated; W18.09XA Striking against other object with subsequent fall, initial encounter; Y92.003 Bedroom of unspecified non-institutional (private) residence as the place of occurrence of the external cause
CPT/HCPCS: 99283

== ENCOUNTER → 2018-11-16 | Outpatient (CLI) | payer OTHER | END | disposition home or self-care (01) | LOC: LABWHC1 13:16 | PROVIDERS: ATTEND Physician Assistant | DX: Z32.01 Encounter for pregnancy test, result positive (principal) | CPT/HCPCS: 36415; 84702 ==

== ENCOUNTER 2019-03-24 15:28 | Emergency (ER) | payer OTHER ==
[2019-03-24 15:37] VITALS: TEMP 97.9
[2019-03-24 15:40] LABS: Glucose,Whole Blood 131 mg/dL (75-99)
--- NOTE | 2019-03-24 16:09 | ED ---
Skin/Abscess/FB HPI - General Chief complaint: Skin/Abscess/Foreign Body Stated complaint: Ulcer on toe Time Seen by Provider: 03/24/19 15:46 Source: patient Mode of arrival: ambulatory Limitations: no limitations - History of Present Illness Initial comments: patient is a 23-year-old, 23 week female with history of diabetes presenting to emergency Department with chief complaint of an ulcer.patient reports an ulcer on her left second toe for the last few months which has been recurring due to consulate being on her feet. Patient reports over the last week she's noticed the toe has changed color and has been swelling up. Patient also noticed the ulcer on the bottom of the toe has been draining. Patient denies any changes to smoke. Patient currently is gestational diabetes and is seeing a high-risk modeler for. She states that she is using the insulin to control it. Denies fevers chills. She does have peripheral neuropathy and does not feel much of her toes. - Related Data Home Medications Medication Instructions Recorded Confirmed Albuterol Inhaler [Ventolin Hfa 2 puff INHALATION RT-QID PRN 03/16/16 06/08/17 Inhaler] HYDROcodone/APAP 5-325MG [[place] 1 tab PO Q6HR PRN 06/08/17 06/08/17 5-325] Ibuprofen [Motrin] 600 mg PO Q6HR PRN 06/08/17 06/08/17 Previous Rx's Medication Instructions Recorded Furosemide [Lasix] 40 mg PO DAILY #14 tab 06/10/17 Metoprolol Tartrate [Lopressor] 25 mg PO DAILY #30 tab 06/10/17 Pnv No.95/Ferrous Fum/Folic AC 1 each PO DAILY #30 tablet 06/10/17 [ Multivitamin Tablet] Potassium Chloride ER [K-Dur 10] 10 meq PO DAILY #14 tab.er.prt 06/10/17 Amoxicillin/Potassium Clav 1 tab PO Q12HR #20 tab 03/24/19 [Augmentin 875-125 Tablet] Allergies Allergy/AdvReac Type Severity Reaction Status Date / Time No Known Allergies Allergy Verified 03/24/19 15:35 Review of Systems ROS Statement: Those systems with pertinent positive or pertinent negative responses have been documented in the HPI. ROS Other: All systems not noted in ROS Statement are negative. Past Medical History Past Medical History: Diabetes Mellitus, GERD/Reflux, Hypertension Additional Past Medical History / Comment(s): Polycystic ovarian disease, r ecurrent pressure ulcers bilateral feet, osteomyelitis with L great toe amputation, past L thigh abscess with cellulitis, States hx of htn, but none now. WEARS BOOT ON LEFT FOOT, AND HAS DRESSING History of Any Multi-Drug Resistant Organisms: None Reported Past Surgical History: Section, Orthopedic Surgery Additional Past Surgical History / Comment(s): WOUND CENTER PT. lt great toe amputation, lt achilles tendon repair, removal of part of left fifth metatarsal for osteomyelitis, I&D LT FOOT(ULCER). PICC LINE Past Anesthesia/Blood Transfusion Reactions: No Reported Reaction Past Psychological History: Anxiety, Depression Smoking Status: Current every day smoker Past Alcohol Use History: None Reported Past Drug Use History: None Reported - Past Family History Mother Family Medical History: Liver Disease Additional Family Medical History / Comment(s): Hx Chrons and colitis. age 35 with liver problems due to ETOH use. Father Family Medical History: Hyperlipidemia, Hypertension Additional Family Medical History / Comment(s): grand father had and mi, grand mother had copd, chf,dm,bp General Exam Limitations: no limitations General appearance: alert, in no apparent distress, obese Head exam: Present: atraumatic, normocephalic, normal inspection Eye exam: Present: normal appearance, PERRL Pupils: Present: normal accommodation ENT exam: Present: normal exam, mucous membranes moist Neck exam: Present: normal inspection, full ROM Respiratory exam: Present: normal lung sounds bilaterally Cardiovascular Exam: Present: regular rate, normal rhythm, normal heart sounds Extremities exam: Present: full ROM, normal capillary refill. Absent: normal inspection (amputation of the left first digit. Swelling and mild discoloration of the second digit with a diabetic ulcer on the plantar aspect. No active drainage noted.), tenderness (patient not tender at the laceration site due tot peripheral neuropathy.) Back exam: Present: normal inspection, full ROM Neurological exam: Present: alert, oriented X3 Psychiatric exam: Present: normal affect, normal mood Skin exam: Present: warm, dry, intact, normal color Course Vital Signs 03/24/19 15:34 Temperature 97.9 F Pulse Rate 94 Respiratory 16 Rate Blood Pressure 157/88 O2 Sat by Pulse 98 Oximetry Medical Decision Making - Medical Decision Making patient is a 23-year-old, 23 week female with history of diabetes presenting to emergency Department with chief complaint of an ulcer. this is has been on the left toe for about a month. Patient reports that is a minimal changes to the ulcer. There has been some drainage of her last 2-3 days which has since resolved. On exam patient hasn't some swelling in the left second toe but no erythema noted. There is a 11 cm diabetic ulcer on the plantar aspect of the left second toe with some excoriations. No active drainage noted. No surrounding cellulitic changes. No foul smell. Patient confirms. X-ray shows no signs of trauma or osteomyelitis. CBC indicates no signs of leukocytosis. Last of laboratory results are unremarkable. Patient given a single dose of Augmentin in the ED. I do not see any signs of acute infection on it so right now. This seems to be a chronic issue for the patient. 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 Patient will be discharged with a 10 day dose of Augmentin. Patient advised to follow-up with primary care. Strict return parameters were thoroughly discussed the patient was understanding and agreeable. Case discussed with physician. - Lab Data Result diagrams: 03/24/19 16:00 03/24/19 16:00 Lab Results 03/24/19 03/24/19 03/24/19 Range/Units 15:38 16:00 16:00 WBC 8.7 (3.8-10.6) k/uL RBC 3.70 L (3.80-5.40) m/uL Hgb 11.4 (11.4-16.0) gm/dL Hct 32.0 L (34.0-46.0) % MCV 86.6 (80.0-100.0) fL MCH 30.7 (25.0-35.0) pg MCHC 35.5 (31.0-37.0) g/dL RDW 14.7 (11.5-15.5) % Plt Count 204 (150-450) k/uL Poikilocytosis Slight Sodium 137 (137-145) mmol/L Potassium 4.3 (3.5-5.1) mmol/L Chloride 104 (98-107) mmol/L Carbon Dioxide 25 (22-30) mmol/L Anion Gap 8 mmol/L BUN 9 (7-17) mg/dL Creatinine 0.47 L (0.52-1.04) mg/dL Est GFR (CKD-EPI)AfAm >90 (>60 ml/min/1.73 sqM) Est GFR (CKD-EPI)NonAf >90 (>60 ml/min/1.73 sqM) Glucose 101 H (74-99) mg/dL POC Glucose (mg/dL) 131 H (75-99) mg/dL POC Glu Soda Jerker ID Antunez, Oswald Plasma Lactic Acid Amador (0.7-2.0) mmol/L Calcium 10.1 (8.4-10.2) mg/dL Total Bilirubin 0.3 (0.2-1.3) mg/dL AST 12 L (14-36) U/L ALT 9 (4-34) U/L Alkaline Phosphatase 50 (38-126) U/L Total Protein 7.0 (6.3-8.2) g/dL Albumin 3.7 (3.5-5.0) g/dL 03/24/19 Range/Units 16:00 WBC (3.8-10.6) k/uL RBC (3.80-5.40) m/uL Hgb (11.4-16.0) gm/dL Hct (34.0-46.0) % MCV (80.0-100.0) fL MCH (25.0-35.0) pg MCHC (31.0-37.0) g/dL RDW (11.5-15.5) % Plt Count (150-450) k/uL Poikilocytosis Sodium (137-145) mmol/L Potassium (3.5-5.1) mmol/L Chloride (98-107) mmol/L Carbon Dioxide (22-30) mmol/L Anion Gap mmol/L BUN (7-17) mg/dL Creatinine (0.52-1.04) mg/dL Est GFR (CKD-EPI)AfAm (>60 ml/min/1.73 sqM) Est GFR (CKD-EPI)NonAf (>60 ml/min/1.73 sqM) Glucose (74-99) mg/dL POC Glucose (mg/dL) (75-99) mg/dL POC Glu Soda Jerker ID Plasma Lactic Acid Amador 1.2 (0.7-2.0) mmol/L Calcium (8.4-10.2) mg/dL Total Bilirubin (0.2-1.3) mg/dL AST (14-36) U/L ALT (4-34) U/L Alkaline Phosphatase (38-126) U/L Total Protein (6.3-8.2) g/dL Albumin (3.5-5.0) g/dL Disposition Clinical Impression: Diabetic ulcer of left foot Disposition: HOME SELF-CARE Condition: Stable Instructions (If sedation given, give patient instructions): Diabetic Foot Ulcers (ED) Additional Instructions: please follow up with primary care. Return to emergency department if symptoms worsen. Prescriptions: Amoxicillin/Potassium Clav [Augmentin 875-125 Tablet] 1 tab PO Q12HR #20 tab Is patient prescribed a controlled substance at d/c from ED?: No Referrals: Benito Eckert MD [Primary Care Provider] - 1-2 days Time of Disposition: 17:41
[2019-03-24 16:23] LABS: HGB 11.4 gm/dL (11.4-16.0); MCH 30.7 pg (25.0-35.0); MCHC 35.5 g/dL (31.0-37.0); MCV 86.6 fL (80.0-100.0); Mean Platelet Volume 7.3; Platelet Count 204 k/uL (150-450); Poikilocytosis Slight; RDW 14.7 % (11.5-15.5); WBC 8.7 k/uL (3.8-10.6)
[2019-03-24 16:38] LABS: ALT 9 U/L (4-34); AST 12 U/L (14-36); African American GFR (CKD) >90 (>60 ml/min/1.73 sqM); Albumin 3.7 g/dL (3.5-5.0); Alkaline Phosphatase 50 U/L (38-126); Anion Gap 8 mmol/L; Blood Urea Nitrogen 9 mg/dL (7-17); Calcium 10.1 mg/dL (8.4-10.2); Carbon Dioxide 25 mmol/L (22-30); Chloride 104 mmol/L (98-107); Glucose 101 mg/dL (74-99); Non-African American GFR(CKD) >90 (>60 ml/min/1.73 sqM); Potassium 4.3 mmol/L (3.5-5.1); Sodium 137 mmol/L (137-145); Total Bilirubin 0.3 mg/dL (0.2-1.3)
--- NOTE | 2019-03-24 16:38 | XR ---
EXAMINATION TYPE: XR foot limited LT DATE OF EXAM: 03/24/2019 COMPARISON: 06/12/2016 HISTORY: Second toe ulcer 4 months TECHNIQUE: 2 view left foot FINDINGS: There is amputation of the distal first metatarsal and first digit. There is amputation of the distal fifth metatarsal. Soft tissue swelling is over the second and third distal digits. No cysts is cortical erosions are ev ident. There is diffuse soft tissue swelling present. IMPRESSION: 1. Diffuse soft tissue swelling. 2. Postsurgical changes first digit metatarsals. 3. No suspicious changes for osteomyelitis. 3 phase bone scan can be performed for sufficient clinica l suspicion.
[2019-03-24] MEDS ORDERED: AMOXIC-POT CLAV 875-125MG 1 EACH TAB PO STA (17:35)
[2019-03-24 18:31] VITALS: BP 144/76; PULSE 87; RESP 20
== END 2019-03-24 18:31 | disposition home or self-care (01) ==
LOC: EC 15:28
DX: O24.312 Unspecified pre-existing diabetes mellitus in pregnancy, second trimester (principal); E11.621 Type 2 diabetes mellitus with foot ulcer; L97.529 Non-pressure chronic ulcer of other part of left foot with unspecified severity; E11.42 Type 2 diabetes mellitus with diabetic polyneuropathy; O99.332 Smoking (tobacco) complicating pregnancy, second trimester; F17.200 Nicotine dependence, unspecified, uncomplicated; Z79.4 Long term (current) use of insulin; Z98.890 Other specified postprocedural states; Z89.412 Acquired absence of left great toe; Z3A.23 23 weeks gestation of pregnancy; Z83.3 Family history of diabetes mellitus
CPT/HCPCS: 36415; 80053; 83605; 85027; 87040; 87070; 87077; 87186; 87205; 99283

== ENCOUNTER → 2019-04-21 | Outpatient (CLI) | payer OTHER ==
--- NOTE | 2019-04-21 14:22 | US ---
EXAMINATION TYPE: US OB >= 14 wk fetus DATE OF EXAM: 04/21/2019 COMPARISON: None CLINICAL HISTORY: O24.312 Unspecified pre-existing diabetes mellitusFollow up, pre existing diabetes mellitus TECHNIQUE: Transabdominal (TA) GESTATIONAL AGE / DATING Physician Established: (27 weeks/5 days) EDC: 07/16/2019 Dates by LMP: Unknown Dates by First Scan: This is 1st scan here Dates by Current Scan: (28 weeks/4 days) EDC: 07/10/2019 SURVEY IUP: Single PLACENTA: Fundal/Posterior PREVIA: No Previa SHAYAN: 13.5 cm Normal CERVICAL LENGTH (transabdominal: norm > 3.0cm): 3.8 cm BIOMETRY PRESENTATION: Vertex BPD: 6.9 cm 27 weeks / 6 days HC: 25.7 cm 28 weeks / 0 days AC: 25.1 cm 29 weeks / 3 days FL: 5.4 cm 28 weeks / 5 days ESTIMATED WEIGHT IN GRAMS: 1289 grams ESTIMATED WEIGHT IN LBS/OZ: 2 lbs. 13 oz. WEIGHT PERCENTAGE BASED ON ESTABLISHED DATES: 80% HC/AC: 1.02 FL/AC: 22% HEART RATE: 146 bpm RHYTHM: Normal MATERNAL WALL MEASUREMENT: 5.3 cm from skin to anterior uterine wall (if exam limited due to body hab itus). Single live intrauterine gestation. No cervical thinning. Normal cephalic presentation. No placenta p revia. biometry measurements concordant and are felt within normal limits. Calculated amniotic fluid index within normal limits. IMPRESSION: As above.
== END | disposition home or self-care (01) ==
LOC: RADUSWWP 13:11
PROVIDERS: ATTEND Obstetrics & Gynecology
DX: O24.312 Unspecified pre-existing diabetes mellitus in pregnancy, second trimester (principal); Z3A.00 Weeks of gestation of pregnancy not specified
CPT/HCPCS: 76805

== ENCOUNTER → 2019-05-25 | Outpatient (CLI) | payer OTHER ==
--- NOTE | 2019-05-26 09:02 | US ---
EXAMINATION TYPE: US OB >= 14 wk fetus DATE OF EXAM: 05/25/2019 COMPARISON: US 04/21/2019 CLINICAL HISTORY: O24.313 PRE EXISTING DIABETES MELLITUS DURING Diabetes with , c heck growth TECHNIQUE: Transabdominal (TA) GESTATIONAL AGE / DATING Physician Established: (32 weeks/4 days) EDC: 07/16/2019 Dates by LMP: Unknown Dates by First Scan: (33 weeks/4 days) EDC: 07/10/2019 Dates by Current Scan: (32 weeks/5 days) EDC: 07/15/2019 SURVEY IUP: Single PLACENTA: Posterior PREVIA: No Previa SHAYAN: 12.8 cm Normal CERVICAL LENGTH (transabdominal: norm > 3.0cm): 3.6 cm BIOMETRY PRESENTATION: Variable LIE: Transverse with head maternal Left BPD: 8.3 cm 33 weeks / 1 days HC: 30.7 cm 34 weeks / 1 days AC: 30.0 cm 33 weeks / 4 days FL: 6.2 cm 32 weeks / 1 days ESTIMATED WEIGHT IN GRAMS: 2135 grams ESTIMATED WEIGHT IN LBS/OZ: 4 lbs. 11 oz. WEIGHT PERCENTAGE BASED ON ESTABLISHED DATES: 59.5% HC/AC: 1.04 Normal FL/AC: 21 Normal HEART RATE: 137 bpm RHYTHM: Normal IMPRESSION: Single live intrauterine with a sonographic age of 32 weeks and 5 days and katia mated date of delivery of 07/15/2019, concordant with menstrual age. The percentage based on establishe d dates of 59.5%. Amniotic fluid index is within normal limits.
== END | disposition home or self-care (01) ==
LOC: RADUSWWP 16:17
PROVIDERS: ATTEND Obstetrics & Gynecology
DX: O24.313 Unspecified pre-existing diabetes mellitus in pregnancy, third trimester (principal); Z3A.32 32 weeks gestation of pregnancy
CPT/HCPCS: 76805

== ENCOUNTER 2019-06-16 02:50 | Outpatient (CLI) | payer OTHER ==
[2019-06-16 04:26] VITALS: BP 113/63; PULSE 99; RESP 16; TEMP 97.3
--- NOTE | 2019-07-02 11:36 | P.MSEPDOC ---
Presenting Problems - Arrival Data Date of Arrival on Unit: 06/16/19 Time of Arrival on Unit: 02:50 Mode of Transport: EMS - Complaint OB-Reason for Admission/Chief Complaint: Efrain Bleeding Comment: Pt states bleedng that started around 0230, approx. 30 minutes after intercourse. Medical History - Information : 3 Para: 2 Term: 2 : 0 Abortions: Spontaneous or Elective: 0 Number of Living Children: 2 - Gestational Age Gestational Age by SHANITA (wks/days): 35 Weeks and 5 Days - History Complications: Prior Review of Systems - Review of Systems Constitutional: No problems Breast: No problems ENT: No problems Cardiovascular: No problems Respiratory: No problems Gastrointestinal: No problems Genitourinary: No problems Musculoskeletal: No problems Neurological: No problems Skin: No problems Vital Signs - Temperature Temperature: 97.3 F Temperature Source: Temporal Artery Scan - Pulse Right Brachial Pulse Rate: 99 Pulse Assessment Method: Automatic Cuff - Respirations Respiratory Rate: 16 Oxygen Delivery Method: Room Air O2 Sat by Pulse Oximetry: 96 - Blood Pressure Right Arm Blood Pressure: 113/63 Blood Pressure Mean: 79 Blood Pressure Source: Automatic Cuff Medical Screen Scoring (Pre) - Cervical Exam Membranes: Intact - Uterine Contractions Frequency: N/A Duration: N/A Intensity: N/A - Maternal Vital Signs Maternal Temperature: N/A Signs of Preeclampsia: N/A Maternal Respirations: N/A - Maternal Trauma Maternal Trauma: N/A - Assessment - Baby A Baseline FHR: 135 Heart Rate - NICHD Category: Category I (Normal) = 0 NST: Reactive - Total Score - Baby A Total Score - Baby A: 0 - Total Score - Baby B Total Score - Baby B: 0 - Total Score - Baby C Total Score - Baby C: 0 - Level of Risk - Baby A Level of Risk - Baby A: Low (0-5) - Level of Risk - Baby B Level of Risk - Baby B: Low (0-5) - Level of Risk - Baby C Level of Risk - Baby C: Low (0-5) Physician Notification (Pre) - Physician Notified Physician Notified Date: 06/16/19 Physician Notified Time: 03:26 New Order Received: Yes - Notification Comment Comment: Reported bleeding on pt pad and pt complaints. No active bleeding noted on spec or during vag exam, RN unable to reach pt cervix. Orders to monitor pt for one hour and if no changes d/c home. Disposition - Disposition OB Disposition: Discharge to home, Written follow up instructions reviewed Discharge Date: 06/16/19 Discharge Time: 04:30 I agree with the RN Medical Screening Exam: Yes Risk & Benefit of care provided described in d/c instruction: Yes Diagnosis: SPOTTING COMPLICATING , THIRD TRIMESTER
== END 2019-06-16 04:30 | disposition home or self-care (01) ==
LOC: FBPOP 02:50
PROVIDERS: ATTEND Obstetrics & Gynecology
DX: O26.853 Spotting complicating pregnancy, third trimester (principal); Z3A.35 35 weeks gestation of pregnancy
CPT/HCPCS: 59025; G0463; 99213

== ENCOUNTER 2019-06-27 16:22 | Outpatient (CLI) | payer OTHER ==
[2019-06-27 17:37] VITALS: BP 113/69; PULSE 87; RESP 17; TEMP 97.1
[2019-06-27 17:58] LABS: Appearance,Urine Cloudy (Clear); Bilirubin,Urine Negative (Negative); Color,Urine Yellow; Glucose,Urine (UA) Negative (Negative); Ketones,Urine Negative (Negative); Protein,Urine Trace (Negative); Specific Gravity,Urine 1.019 (1.001-1.035)
[2019-06-27 17:59] LABS: Amorphous Sediment,Urine Few /hpf; Bacteria,Urine Rare /hpf; Blood,Urine Negative (Negative); Leukocyte Esterase,Urine Negative (Negative); Mucus,Urine Rare /hpf; Nitrite,Urine Negative (Negative); RBC,Urine 1 /hpf (0-5); Squamous Epithelial Cell,Urine 15 /hpf (0-4); Urobilinogen,Urine <2.0 mg/dL (<2.0); WBC,Urine 6 /hpf (0-5)
--- NOTE | 2019-07-02 11:37 | P.MSEPDOC ---
Presenting Problems - Arrival Data Date of Arrival on Unit: 06/27/19 Time of Arrival on Unit: 16:22 Mode of Transport: Wheelchair - Complaint OB-Reason for Admission/Chief Complaint: Other Comment: pt here with c/o constant lower abd pain that started several days ago and. reports blacking out last night around 2300 after trying to have a bowel movement, pt. reports + fm, abd soft and non tender, pt is seeing dr martinez and was supposed to have. an appt with him this am but felt like she was in too much pain to attend, she was also. supposed to have an ultrasound appt today at 1630 here at the hospital but missed it due to coming into triage, pt also reports bleeding noted after straining to have a BM, hemorrhoids noted upon examination Medical History - Information : 3 Para: 2 Term: 2 : 0 Abortions: Spontaneous or Elective: 0 Number of Living Children: 2 - Gestational Age Gestational Age by SHANITA (wks/days): 37 Weeks and 2 Days - History Complications: Other Comment: pt reports hx of type 2 DM and is taking insulin, denies other complications Review of Systems - Review of Systems Constitutional: No problems Breast: No problems ENT: No problems Cardiovascular: No problems Respiratory: No problems Gastrointestinal: No problems Genitourinary: No problems Musculoskeletal: No problems Neurological: No problems Skin: No problems Vital Signs - Temperature Temperature: 97.1 F Temperature Source: Oral - Pulse Right Brachial Pulse Rate: 87 Pulse Assessment Method: Automatic Cuff - Respirations Respiratory Rate: 17 Oxygen Delivery Method: Room Air O2 Sat by Pulse Oximetry: 98 - Blood Pressure Right Arm Blood Pressure: 113/69 Blood Pressure Mean: 83 Blood Pressure Source: Automatic Cuff Medical Screen Scoring (Pre) - Cervical Exam Dilation: Exam Deferred Effacement: Exam Deferred Membranes: Intact - Uterine Contractions Frequency: N/A Duration: N/A Intensity: N/A - Maternal Vital Signs Maternal Temperature: N/A Maternal Blood Pressure: N/A Signs of Preeclampsia: N/A Maternal Respirations: N/A - Maternal Trauma Maternal Trauma: N/A - Assessment - Baby A Baseline FHR: 140 Heart Rate - NICHD Category: Category I (Normal) = 0 NST: Reactive Position: N/A Station: N/A - Total Score - Baby A Total Score - Baby A: 0 - Total Score - Baby B Total Score - Baby B: 0 - Total Score - Baby C Total Score - Baby C: 0 - Level of Risk - Baby A Level of Risk - Baby A: Low (0-5) - Level of Risk - Baby B Level of Risk - Baby B: Low (0-5) - Level of Risk - Baby C Level of Risk - Baby C: Low (0-5) Physician Notification (Pre) - Physician Notified Physician Notified Date: 06/27/19 Physician Notified Time: 17:15 New Order Received: Yes (u/a) Medical Screen Scoring (Post) - Cervical Exam Dilation: Exam Deferred Effacement: Exam Deferred Membranes: Intact - Uterine Contractions Frequency: N/A Duration: N/A Intensity: N/A - Maternal Vital Signs Maternal Temperature: N/A Maternal Blood Pressure: N/A Signs of Preeclampsia: N/A Maternal Respirations: N/A - Maternal Trauma Maternal Trauma: N/A - Assessment - Baby A Heart Rate: 140 Heart Rate - NICHD Category: Category I (Normal) = 0 NST: Reactive Position: N/A Station: N/A - Total Score Total Score - Baby A: 0 Total Score - Baby B: 0 Total Score - Baby C: 0 - Post Treatment Level of Risk Post Treatment Level of Risk - Baby A: Low (0-5) Physician Notification (Post) - Physician Notified Physician Notified Date: 06/27/19 Physician Notified Time: 18:10 Physician/Practitioner Notified:: SEN Spoke With: Dr Rosales New Order Received: Yes (dc home) - Notification Comment Comment: reviewed u/a results with dr rosales, pt ok to dc home, has appt with Dr Martinez on 06-28 Disposition - Disposition OB Disposition: Discharge to home, Written follow up instructions reviewed Discharge Date: 06/27/19 Discharge Time: 18:25 I agree with the RN Medical Screening Exam: Yes Risk & Benefit of care provided described in d/c instruction: Yes Diagnosis: RELATED CONDITIONS, UNSPECIFIED, THIRD TRIMESTER
== END 2019-06-27 18:25 | disposition home or self-care (01) ==
LOC: FBPOP 16:22
PROVIDERS: ATTEND Obstetrics & Gynecology
DX: O26.93 Pregnancy related conditions, unspecified, third trimester (principal); O24.913 Unspecified diabetes mellitus in pregnancy, third trimester; Z3A.37 37 weeks gestation of pregnancy
CPT/HCPCS: 59025; 81001; G0463; 99213